=== PATIENT | female | born 1955 | race Caucasian/White ===

== ENCOUNTER 2017-02-15 10:48 | Outpatient (CLI) ==
--- NOTE | 2017-02-15 11:54 | DI ---
EXAM: CHEST FRONTAL AND LATERAL VIEWS HISTORY: Cough. COMPARISON: 01/07/2010 FINDINGS: Heart size and mediastinal contour remain within normal limits. There is diffuse, chroni c appearing interstitial accentuation. Lungs are hyperinflated and there is relative lucency of the lung zones suggesting the possibility of pulmonary emphysema. Subtle density is seen over the right upper lobe which was not appreciated previously. Lungs are otherwise clear. No pleural fluid, pneum othorax or vascular congestion. IMPRESSION: Cannot exclude a component chronic obstructive pulmonary disease, correlate clinically. Subtle densi ty in the right upper lobe may represent minimal pneumonia.
== END 2017-02-15 10:49 | disposition home or self-care (01) ==
LOC: RAD 10:48
PROVIDERS: ATTEND Physician Assistant
DX: R05 Cough (principal)

== ENCOUNTER 2017-09-27 16:29 | Outpatient (CLI) ==
--- NOTE | 2017-09-27 17:04 | CT ---
Exam: CT abdomen pelvis without intravenous contrast. Comparison: None available. Reason for exam: Pelvic pain renal stone protocol. FINDINGS: Ground-glass opacities are seen in both lung bases without pleural effusion. Image interpretation is limited by the lack of intravenous contrast administration. The liver, gallbladder, spleen, adrenal glands, and pancreas appear grossly unremarkable within limit ations of a noncontrasted study. No hydronephrosis, hydroureter, or nephrolithiasis is seen in either kidney. The bladder appears grossly unremarkable. No focal small bowel dilatation or transition point. The appendix is unremarkable. No intra-abdominal free air or pelvic free fluid. Diverticular disease is seen in the rectosigmoid without surrounding inflammatory change. Degenerative disease is seen in the lumbosacral spine with intervertebral body disc space height narr owing and osteophyte formation. No suspicious appearing osteoblastic or osteolytic lesions. Impression: 1. Patchy ground-glass opacities are seen in both lung bases. Imaging findings are most likely infl ammation or early infection. Recommend follow up imaging to document resolution. 2. No acute inflammatory findings are seen within the abdomen or pelvis. 3. The appendix is unremarkable. 4. Diverticulosis without diverticulitis. 5. No hydronephrosis, hydroureter or nephrolithiasis in either kidney
== END 2017-09-27 16:30 | disposition home or self-care (01) ==
LOC: RAD 16:29
PROVIDERS: ATTEND Physician Assistant
DX: R10.2 Pelvic and perineal pain (principal)
CPT/HCPCS: 74176

== ENCOUNTER 2017-11-06 09:37 | Outpatient (CLI) ==
--- NOTE | 2017-11-06 11:24 | DEXA ---
EXAM: Bone densitometry. History: Menopause Findings: Evaluation of the lumbar spine reveals a total bone mineral density of 0.845 grams per centimeter squ ared with T-score of negative 2.8. Evaluation of the left hip reveals a total bone mineral density of 0.871 grams per centimeter squared with T-score of negative 1.1. Evaluation of the right hip reveals a total bone mineral density of 0.853 grams per centimeter square d with T-score of negative 1.2. Impression: 1. Osteoporosis of the lumbar spine. 2. Osteopenia of bilateral hips.
== END 2017-11-06 09:38 | disposition home or self-care (01) ==
LOC: RAD 09:37
PROVIDERS: ATTEND Physician Assistant
DX: N95.1 Menopausal and female climacteric states (principal)

== ENCOUNTER 2017-11-08 16:01 | Outpatient (CLI) ==
--- NOTE | 2017-11-08 17:02 | DI ---
EXAM: Chest two views HISTORY: Cough COMPARISON: 02/15/2017 TECHNIQUE: Two views of the chest were performed FINDINGS: Patchy right basilar atelectasis and/or infiltrate. There is no pleural effusion or pneum othorax. The heart is normal in size. The mediastinal contour is normal, noting atherosclerosis.. There are no acute abnormalities of the bones. IMPRESSION: Patchy right basilar atelectasis and/or pneumonia.
== END 2017-11-08 16:02 | disposition home or self-care (01) ==
LOC: RAD 16:01
PROVIDERS: ATTEND Physician Assistant
DX: R05 Cough (principal)

== ENCOUNTER 2018-07-02 11:57 | Outpatient (CLI) ==
--- NOTE | 2018-07-02 12:44 | DI ---
Exam: Two views of the thoracolumbar spine. Comparison: Chest x-ray performed 01/11/2018. Reason for exam: T12 fracture. FINDINGS: Compression deformity is seen in what is presumed to be the T12 vertebral body. There is approximately 50% loss of vertebral body height. No other fracture or malalignment is seen. Impression: Compression deformity in the T12 vertebral body with approximately 50% loss of vertebral body height.
== END 2018-07-02 11:58 | disposition home or self-care (01) ==
LOC: RAD 11:57
PROVIDERS: ATTEND Specialist
DX: S22.089A Unspecified fracture of T11-T12 vertebra, initial encounter for closed fracture (principal)

== ENCOUNTER 2018-07-16 12:59 | Inpatient (IN) ==
[2018-07-16] MEDS ORDERED: DUONEB NEB STA (14:02)
--- NOTE | 2018-07-16 14:08 | ED.PDOC ---
General ED Provider: Dr. MARIA M POWERS Chief Complaint: Cough Stated Complaint: Shortness of breath and congestion Time Seen by Physician: 13:15 Mode of Arrival: Walk-In Information Source: Patient Exam Limitations: No limitations Primary Care Provider: OSEI PHAM Nursing and Triage Documentation Reviewed and Agree: Yes Does patient meet sepsis criteria?: Yes If yes, has appropriate treatment been initiated?: Yes System Inflammatory Response Syndrome: Pulse >90 BPM Sepsis Protocol: For patient's 13 years and over: Temp is 96.8 and below OR 101 and greater Pulse >90 BPM Resp >20/minute Acutely Altered Mental Status Are patient's symptoms suggestive of a new infection, such as: -Pneumonia -Skin, Soft Tissue -Endocarditis -UTI -Bone, Joint Infection -Implantable Device -Acute Abdominal Infection -Wound Infection -Meningitis -Blood Stream Catheter Infection -Unknown Respiratory Complaint Exam - Shortness of Air Complaint/Exam Onset/Duration: 5 days Symptoms Are: Still present, Worse Timing: Intermittent Initial Severity: Moderate Current Severity: Moderate Character: Reports: Dyspnea at rest, Dyspnea on exertion Aggravating: Reports: Movement, Deep breaths, Recumbent position Alleviating: Reports: Oxygen Associated Signs and Symptoms: Reports: Cough, Wheezing Related History: Reports: Similar episode History of Healthcare-Acquired Pneumonia: No Pulmonary Embolism Risk Factors: Reports: None Pseudomonas Risk Factors: Reports: None Tuberculosis Risk Factors: Reports: None Home Oxygen Use: No Recent Stress Test: No Recent Echo/LV Function: No Stridor Present: No Tracheal Deviation: No Subcutaneous Emphysema: No Accessory Muscle Use: No Retractions: Not Present Diminished Breath Sounds: Yes Prolonged Expiratory Phase: Yes Unable to Speak Full Sentences: No Fatigue: Yes Leg Swelling: No Alicia's Sign Present: No Grunting Respirations: No Kussmaul Respirations: No Differential Diagnoses: COPD Exacerbation, Pneumonia, Bronchitis, Bronchospasm Review of Systems - Review Of Systems Constitutional: Reports: Malaise, Weakness Eyes: Reports: No symptoms Ears, Nose, Mouth, Throat: Reports: No symptoms Respiratory: Reports: Cough, Orthopnea, Short of air, Wheezing Cardiac: Reports: No symptoms GI: Reports: No symptoms : Reports: No symptoms Musculoskeletal: Reports: No symptoms Skin: Reports: No symptoms Neurological: Reports: No symptoms Endocrine: Reports: No symptoms Hematologic/Lymphatic: Reports: No symptoms All Other Systems: Reviewed and Negative Past Medical History - Past Medical History Previously Healthy: Yes Endocrine: Reports: None Cardiovascular: Reports: None, Hypertension Respiratory: Reports: COPD, 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) Hematological: Reports: None Gastrointestinal: Reports: None Genitourinary: Reports: None Neuro/Psych: Reports: None Musculoskeletal: Reports: Back Pain, Other (prev back injury) Cancer: Reports: None Last Menstrual Period: none - Surgical History General Surgical History: Reports: Unknown - Family History Family History: Reports: Unknown - Social History Smoking Status: Current every day smoker, Light tobacco smoker Hx Substance Use: No Alcohol Screening: None Lives: Alone Physical Exam - Physical Exam Appearance: Ill-appearing, Obese Ill-appearing: Moderate Pain Distress: Moderate Eyes: DEJAN, EOMI, Conjunctiva clear ENT: Ears normal, Nose normal, Oropharynx normal Neck: Supple Respiratory: Airway patent, Breath sounds diminished, Rhonchi, Wheezes Cardiovascular: RRR, Pulses normal, No rub, No murmur GI/: Soft, Nontender, No masses, Bowel sounds normal, No Organomegaly Musculoskeletal: Normal strength, ROM intact, No edema, No calf tenderness Skin: Warm Neurological: Sensation intact, Motor intact, Reflexes intact, Cranial nerves intact, Alert, Oriented Psychiatric: Affect appropriate, Mood appropriate Interpretation - Radiology Interpretation Radiology Interpretation By: Radiologist Exam Interpreted: CT Scan (NO PE/ emphysema and nodular densities-poss infectious or inflamatory r/o neoplasm-expl to pt) Re-Evaluation - Re-Evaluation Time of Re-Evaluation: 17:25 Status: Improved Vital Signs Stable: Yes (Attempted to wean off O2 but O2 Sats dropped to 87-88%) Appearance: NAD Lungs: Other (Diminished BS-Wheezing) Skin: Warm and Dry Neuro: Alert and Oriented X3 CV: RRR Physician Notification - Case Discussed Physician Notified: Dr Piedra- To admit patient Time of Notification: 17:40 (Agreed to admit for tx exac copd) Critical Care Note - Critical Care Note Total Time (mins): 60 Course - Course Hematology/Chemistry: 07/16/18 13:25 07/16/18 13:25 Orders, Labs, Meds: Lab Review 07/16/18 07/16/18 07/16/18 13:25 13:25 13:25 WBC 12.23 H RBC 5.33 Hgb 16.1 H Hct 47.9 H MCV 89.9 MCH 30.2 MCHC 33.6 RDW Coeff of Bryan 12.2 Plt Count 347 Immature Gran % (Auto) 0.5 Neut % (Auto) 70.9 Lymph % (Auto) 19.0 Christian % (Auto) 7.3 Eos % (Auto) 1.7 Baso % (Auto) 0.6 Immature Gran # (Auto) 0.1 Neut # (Auto) 8.7 H Lymph # (Auto) 2.3 Christian # (Auto) 0.9 Eos # (Auto) 0.2 Baso # (Auto) 0.1 Puncture Site O2 Saturation ABG pH ABG pCO2 ABG pO2 ABG HCO3 ABG Total CO2 ABG Base Excess Abiel Test FiO2 % Sodium 135.7 Potassium 4.10 Chloride 96.4 L Carbon Dioxide 35.0 H Anion Gap 8.40 BUN 4.2 L Creatinine 0.51 L Estimated GFR (MDRD) 123.00 BUN/Creatinine Ratio 8.23 Glucose 123.9 H Lactic Acid Calcium 8.64 Total Bilirubin 0.40 AST 24.5 ALT 34.1 Alkaline Phosphatase 88.2 Total Protein 7.57 Albumin 3.52 Globulin 4.05 Albumin/Globulin Ratio 0.86 Procalcitonin < 0.05 Influ A Molecular Assay Influ B Molecular Assay 07/16/18 07/16/18 07/16/18 13:25 14:15 14:20 WBC RBC Hgb Hct MCV MCH MCHC RDW Coeff of Bryan Plt Count Immature Gran % (Auto) Neut % (Auto) Lymph % (Auto) Christian % (Auto) Eos % (Auto) Baso % (Auto) Immature Gran # (Auto) Neut # (Auto) Lymph # (Auto) Christian # (Auto) Eos # (Auto) Baso # (Auto) Puncture Site R rad O2 Saturation 91.0 L ABG pH 7.442 ABG pCO2 44.1 ABG pO2 59.0 L* ABG HCO3 30.1 H ABG Total CO2 31 H ABG Base Excess 6 H Abiel Test + FiO2 % 21.0 Sodium Potassium Chloride Carbon Dioxide Anion Gap BUN Creatinine Estimated GFR (MDRD) BUN/Creatinine Ratio Glucose Lactic Acid 1.23 Calcium Total Bilirubin AST ALT Alkaline Phosphatase Total Protein Albumin Globulin Albumin/Globulin Ratio Procalcitonin Influ A Molecular Assay Negative by naat Influ B Molecular Assay Negative by naat Orders Category Date Time Status ABG DRAW REQUEST Stat CARDIO 07/16/18 14:02 Completed EKG-(ED ONLY) Stat CARDIO 07/16/18 14:02 Completed NEBULIZER TREATMENT Stat CARDIO 07/16/18 14:03 Completed NEBULIZER TREATMENT Stat CARDIO 07/16/18 17:59 Ordered NEBULIZER TREATMENT Stat CARDIO 07/16/18 18:00 Ordered OXYGEN Routine CARDIO 07/16/18 14:03 Ordered NPO REMINDER: IMAGING ONCE CARE 07/16/18 14:52 Active ABG Stat LAB 07/16/18 14:20 Completed BLOOD CULTURE Stat LAB 07/16/18 13:28 Received CBC W/ AUTO DIFF Stat LAB 07/16/18 13:25 Completed CMP [COMPREHENSIVE METABOLIC PANEL] Stat LAB 07/16/18 13:25 Completed CPK [CREATINE KINASE] Stat LAB 07/16/18 17:57 Ordered FLU A/B MOLECULAR Stat LAB 07/16/18 13:25 Completed LACTIC ACID Stat LAB 07/16/18 14:15 Completed PROCALCITONIN Stat LAB 07/16/18 13:25 Completed RAPID STREP SCREEN [MOLECULAR GROUP A STREP] Stat LAB 07/16/18 13:25 Completed TROPONIN I Stat LAB 07/16/18 17:57 Ordered Budesonide [Pulmicort 0.5 mg/2 ml] MEDS 07/16/18 17:59 Stat 1 vial NEB ONCE STA Ceftriaxone Sodium [Rocephin] 1 gm MEDS 07/16/18 17:58 Ordered 0.9 % Sodium Chloride [Sodium Chloride] 50 ml IV ONCE Ipratropium/Albuterol Neb [Duoneb] MEDS 07/16/18 14:02 Discontinued 1 vial NEB ONCE STA Levalbuterol HCl [Xopenex 1.25 mg] MEDS 07/16/18 17:59 Stat 1 vial NEB ONCE STA Methylprednisolone Sod Succ/Pf [Solu-Medrol 125 mg] MEDS 07/16/18 17:28 Discontinued 125 mg IVP ONCE STA CT CHEST PE PROTOCOL Stat RADS 07/16/18 14:51 Completed Medications Generic Name Dose Route Start Last Admin Trade Name Freq PRN Reason Stop Dose Admin Ceftriaxone Sodium 1 gm/ 50 mls @ 75 mls/hr 07/16/18 17:58 Sodium Chloride IV 07/16/18 18:37 ONCE STA Discontinued Medications Generic Name Dose Route Start Last Admin Trade Name Freq PRN Reason Stop Dose Admin Albuterol/Ipratropium 1 vial 07/16/18 14:02 07/16/18 14:20 Duoneb NEB 07/16/18 14:03 1 vial ONCE STA Administration Budesonide 1 vial 07/16/18 17:59 Pulmicort 0.5 Mg/2 Ml NEB 07/16/18 18:00 ONCE STA Levalbuterol HCl 1 vial 07/16/18 17:59 Xopenex 1.25 Mg NEB 07/16/18 18:00 ONCE STA Methylprednisolone Sodium Succinate 125 mg 07/16/18 17:28 07/16/18 17:35 Solu-Medrol 125 Mg IVP 07/16/18 17:29 125 mg ONCE STA Administration Vital Signs: Temp Pulse Resp BP Pulse Ox 07/16/18 12:59 99.9 F H 108 H 22 102/69 89 L Departure - Departure Time of Disposition: 17:00 Disposition: HOME SELF-CARE Discharge Problem: COPD exacerbation, Pulmonary nodules Instructions: COPD (Chronic Obstructive Pulmonary Disease) (ED), Chronic Bronchitis (ED), Chronic Lung Disease and Infection Prevention (ED) Condition: Fair Pt referred to PMD for follow-up: Yes (PCP/Pulmonolgy) IPMP verified?: No Additional Instructions: Use Nebs every 4 hrs daily Take Prednisone as directed Allergies/Adverse Reactions: Allergies No Known Allergies Allergy (Unverified 07/16/18 13:06) Home Medications: Ambulatory Orders Atorvastatin Calcium [Lipitor] 20 mg PO BEDTIME 07/16/18 Losartan Potassium [Cozaar] 50 mg PO DAILY 07/16/18 Ticagrelor [Brilinta] 90 mg PO BID 07/16/18
--- NOTE | 2018-07-16 16:10 | CT ---
EXAM: CTA CHEST (PE PROTOCOL) HISTORY: Dyspnea, decreased oxygen saturation TECHNIQUE: CTA chest with intravenous contrast. Multiplanar images were provided with 3-D reconstru ctions. 100 mL Omnipaque. COMPARISON: None FINDINGS: No pulmonary arterial filling defect. Relatively mild atherosclerotic disease. Heart size is normal . There is no pericardial effusion. A few mediastinal and hilar lymph nodes are seen, some which ar e prominent measuring up to about 9 mm short axis. Lungs reveal evidence of at least mild if not moderate pulmonary emphysema. Scattered areas of scarr ing. There are nodular infiltrates or nodules, mostly seen in the peripheral lungs and much greater on the left than on the right. These nodules measure up to about 11 mm. There is intermixed interst itial thickening between these entities greater in the posterior lower lobes than elsewhere. Central bronchiectasis is noted bilaterally. There is no central vascular congestion, interstitial edema, p leural fluid or pneumothorax. The bones reveal early degenerative endplate changes of the thoracic spine. IMPRESSION: 1. No pulmonary arterial thromboembolism. 2. Pulmonary emphysema. 3. Nodular infiltrates versus nodules with intermixed interstitial thickening. Consider an inflamma tory or infectious process. Neoplastic nodules are not excluded and follow-up CT is recommended afte r management and symptom improvement. 4. Atherosclerosis. 5. Prominent mediastinal lymph nodes.
[2018-07-16] MEDS ORDERED: SOLU-MEDROL 125 MG IVP STA (17:28)
[2018-07-16] MEDS ORDERED: ROCEPHIN 1 GM in SODIUM CHLORIDE 50 ML IV STA (17:58)
[2018-07-16] MEDS ORDERED: PULMICORT 0.5 MG/2 ML NEB STA (17:59)
[2018-07-16] MEDS ORDERED: XOPENEX 1.25 MG NEB STA (17:59)
[2018-07-16] MEDS ORDERED: ZITHROMAX PO STA (18:09)
[2018-07-16] MEDS ORDERED: ROCEPHIN ONE (18:39)
[2018-07-16] MEDS: LIPITOR PO SCH (20:23)
[2018-07-16] MEDS: LOVENOX SUBCUT SCH (20:25)
[2018-07-16] MEDS ORDERED: TESSALON PERLES PO PRN (20:55)
[2018-07-16] MEDS ORDERED: BRILINTA PO SCH (21:00)
[2018-07-16] MEDS: PHENERGAN WITH CODEINE 6.25/10 MG/5 ML PO SCH (21:21)
[2018-07-16 22:06] VITALS: BMI 33.6
[2018-07-16] MEDS: XOPENEX 1.25 MG NEB SCH (23:05)
[2018-07-16] MEDS ORDERED: XOPENEX 1.25 MG NEB ONE (23:05)
[2018-07-17] MEDS: SOLU-CORTEF 250 MG IVP SCH ×4 (00:08→20:52)
[2018-07-17] MEDS: PROAIR HFA IH SCH ×4 (00:08→17:10)
[2018-07-17] MEDS: XOPENEX 1.25 MG NEB SCH ×4 (04:42→21:50)
[2018-07-17] MEDS: ROCEPHIN 1 GM in SODIUM CHLORIDE 50 ML IV SCH (08:56)
[2018-07-17] MEDS: LOVENOX SUBCUT SCH (08:56)
[2018-07-17] MEDS: PHENERGAN WITH CODEINE 6.25/10 MG/5 ML PO SCH ×4 (08:56→20:52)
[2018-07-17] MEDS: COZAAR PO SCH (08:58)
[2018-07-17] MEDS ORDERED: NON-FORMULARY MEDICATION (Losartan Potassium 50 MG) PO SCH (09:00)
--- NOTE | 2018-07-17 09:18 | PCM.PROG ---
Attending Provider: ATTENDING PROVIDER: [facility] This patient is seen with Ariana Joe, Nurse Practitioner. DATE OF SERVICE: 07/17/18 SUBJECTIVE: This 62 year old WHITE/ F was hospitalized 07/16/18. The patient is resting comfortably. Breathing has significantly improved. The patient was able to get some rest through the night. She is a heavy smoker. REVIEW OF SYSTEMS: CONSTITUTIONAL: No night sweats. No fatigue, malaise, lethargy. No fever or chills. HEENT: Eyes: No visual changes. No eye pain. No eye discharge. ENT: No runny nose. No epistaxis. No sinus pain. No odynophagia. No congestion. RESPIRATORY: Cough and wheezing, no congestion. No hemoptysis. No shortness of breath. CARDIOVASCULAR: No angina symptoms. No CHF symptoms. No atypical chest pain for CAD. No palpitations. No orthopnea.. GASTROINTESTINAL: No abdominal pain. No nausea or vomiting. No diarrhea or constipation. No hematemesis. No hematochezia. GENITOURINARY: No urgency. No frequency. No dysuria. No hematuria. No obstructive symptoms. No discharge. No pain. No significant abnormal bleeding. MUSCULOSKELETAL: No musculoskeletal pain; no joint swelling. NEUROLOGICAL: Awake, alert, oriented to time, place and person. No headache. No neck pain. No syncope. No seizures. No dizziness. PSYCHIATRIC: Not anxious. No depression. No suicidal thoughts. No homicidal thoughts. SKIN: No rash. No lesions. No wounds. ENDOCRINE: No unexplained weight loss. No weight gain. HEMATOLOGIC/LYMPHATIC: No anemia. No purpura. No petechiae. No prolonged or excessive bleeding. No palpable lymph nodes. PHYSICAL EXAMINATION: GENERAL: The patient is awake, alert and oriented, lying in bed in no distress. VITAL SIGNS: Temperature 98.1 F, Pulse 94, Respiratory Rate 17, BP 117/81, Pulse Ox 92% HEENT: Head normocephalic, atraumatic. Eyes: Extraocular muscles are intact. Pupils are equal, round and reactive to light and accommodation. Ears: No lesions. Nose appeared normal. Throat: No exudate or erythema. NECK: Supple. No JVD, no carotid bruit. No lymphadenopathy or thyromegaly. LUNGS: Decreased breath sounds with faint expiratory wheezing. Clear to auscultation. Percussion note normal. Chest symmetrical. HEART: S1, S2, no S3. No murmurs. No cyanosis or clubbing. No ascites. Pulses: Dorsalis pedis and posterior tibial pulses +1 to +2 both sides. ABDOMEN: Soft. Non-tender. Bowel sounds active. No CVA tenderness. No mass felt. EXTREMITIES: No edema. Full range of motion of all extremities, equal. NEUROLOGIC: No focal deficit. Cranial nerves II through XII are grossly intact. No headache, no double vision or headache. SKIN: Not dry. Intact. Turgor-normal. LYMPHATIC: No palpable lymph nodes/no lymphedema. MUSCULOSKELETAL: Normal joints with no swelling. Muscle tone is normal. LAB REVIEW: 07/17/18 05:07 07/17/18 05:07 07/17/18 05:07: Sodium 131.0 L, Potassium 4.30, Chloride 95.9 L, Carbon Dioxide 25.8 D, Anion Gap 13.60, BUN 5.5 L, Creatinine 0.46 L, Estimated GFR (MDRD) 139.00, BUN/Creatinine Ratio 11.95, Glucose 303.3 H D, Calcium 8.44, Total Bilirubin 0.21, AST 19.0, ALT 42.6 H, Alkaline Phosphatase 73.8, Total Protein 6.69, Albumin 3.29 L, Globulin 3.40, Albumin/Globulin Ratio 0.96 07/17/18 05:07: WBC 12.05 H, RBC 4.74, Hgb 14.2, Hct 43.1, MCV 90.9, MCH 30.0, MCHC 32.9, RDW Coeff of Bryan 12.1, Plt Count 308, Immature Gran % (Auto) 1.1, Neut % (Auto) 84.5, Lymph % (Auto) 12.0, Fleming % (Auto) 2.2, Eos % (Auto) 0.0, Baso % (Auto) 0.2, Immature Gran # (Auto) 0.1, Neut # (Auto) 10.2 H, Lymph # ( Auto) 1.4, Fleming # (Auto) 0.3 L, Eos # (Auto) 0.0, Baso # (Auto) 0.0 07/17/18 05:00: Puncture Site Rbrach, O2 Saturation 88.0 L, ABG pH 7.313 L, ABG pCO2 51.9 H, ABG pO2 59.0 L*, ABG HCO3 26.3 H, ABG Total CO2 28, ABG Base Excess 0, Abiel Test +, FiO2 % 21.0 07/17/18 00:20: Troponin I < 0.012 07/16/18 14:20: Puncture Site R rad, O2 Saturation 91.0 L, ABG pH 7.442, ABG pCO2 44.1, ABG pO2 59.0 L*, ABG HCO3 30.1 H, ABG Total CO2 31 H, ABG Base Excess 6 H, Abiel Test +, FiO2 % 21.0 07/16/18 14:15: Lactic Acid 1.23 07/16/18 13:25: Total Creatine Kinase 26.4 L, Troponin I < 0.012 07/16/18 13:25: Influ A Molecular Assay Negative by naat, Influ B Molecular Assay Negative by naat 07/16/18 13:25: Procalcitonin < 0.05 07/16/18 13:25: Sodium 135.7, Potassium 4.10, Chloride 96.4 L, Carbon Dioxide 35.0 H, Anion Gap 8.40, BUN 4.2 L, Creatinine 0.51 L, Estimated GFR (MDRD) 123.00, BUN/Creatinine Ratio 8.23, Glucose 123.9 H, Calcium 8.64, Total Bilirubin 0.40, AST 24.5, ALT 34.1, Alkaline Phosphatase 88.2, Total Protein 7.57, Albumin 3.52, Globulin 4.05, Albumin/Globulin Ratio 0.86 07/16/18 13:25: WBC 12.23 H, RBC 5.33, Hgb 16.1 H, Hct 47.9 H, MCV 89.9, MCH 30.2, MCHC 33.6, RDW Coeff of Bryan 12.2, Plt Count 347, Immature Gran % (Auto) 0.5, Neut % (Auto) 70.9, Lymph % (Auto) 19.0, Fleming % (Auto) 7.3, Eos % (Auto) 1.7, Baso % (Auto) 0.6, Immature Gran # (Auto) 0.1, Neut # (Auto) 8.7 H, Lymph # (Auto) 2.3, Fleming # (Auto) 0.9, Eos # (Auto) 0.2, Baso # (Auto) 0.1 ASSESSMENT: Please see below. 1. Acute COPD exacerbation 2. Shortness of breath, requiring oxygen 3. Hypertension PLAN: 1. Decreased Solu-Cortef 125mg Q 8 hours 2. Start Pulmicort NEBS treatment twice a day 3. A1c Plan and coordination of the patient's care discussed in the presence of Information Systems Security Specialist and nurse. SCRIBED BY: Brandon DEL VALLE scribed while in presence of service performed by Dr. Esquivel/Ariana Joe APRN on 07/17/18 ([id number])
[2018-07-17] MEDS ORDERED: NICODERM 21 MG TD SCH (11:00)
[2018-07-17] MEDS: NICODERM 21 MG TD SCH (11:41)
[2018-07-17] MEDS: PULMICORT 0.5 MG/2 ML NEB SCH (17:24)
[2018-07-17] MEDS ORDERED: ZITHROMAX PO SCH (18:14)
[2018-07-17] MEDS: LIPITOR PO SCH (20:52)
[2018-07-18] MEDS: PROAIR HFA IH SCH ×5 (00:05→17:03)
[2018-07-18] MEDS: PULMICORT 0.5 MG/2 ML NEB SCH ×2 (04:54→17:04)
[2018-07-18] MEDS: XOPENEX 1.25 MG NEB SCH ×3 (04:54→17:05)
[2018-07-18] MEDS: SOLU-CORTEF 250 MG IVP SCH ×3 (05:25→21:29)
--- NOTE | 2018-07-18 08:12 | HP ---
DATE OF SERVICE: 07/16/18 HISTORY OF PRESENT ILLNESS: This 62-year-old white female who presented to the emergency room with cough and shortness of breath. She is a mcc smoker. Her primary care provider is Blanca Rosales at the [facility]. PAST MEDICAL HISTORY: COPD Hypertension Obesity Chronic back pain Dyslipidemia Hyperglycemia PAST SURGICAL HISTORY: None known. REVIEW OF SYSTEMS: CONSTITUTIONAL: No night sweats. No fatigue, malaise, lethargy. Positive for fever. HEENT: Eyes: No visual changes. No eye pain. No eye discharge. ENT: No runny nose. No epistaxis. No sinus pain. No sore throat. No odynophagia. No ear pain. No congestion. RESPIRATORY: Positive for cough, wheeze. No hemoptysis. Positive for shortness of breath. CARDIOVASCULAR: No angina symptoms. No CHF symptoms. No atypical chest pain for CAD. No palpitations. No PND. No orthopnea. GASTROINTESTINAL: No abdominal pain. No nausea or vomiting. No diarrhea or constipation. No hematemesis. No hematochezia. GENITOURINARY: No urgency. No frequency. No dysuria. No hematuria. No obstructive symptoms. No discharge. No pain. No significant abnormal bleeding. MUSCULOSKELETAL: No musculoskeletal pain. No joint swelling. No arthritis. NEUROLOGICAL: No headache. No neck pain. No syncope. No seizures. No dizziness. PSYCHIATRIC: Not anxious. No depression. No suicidal thoughts. No homicidal thoughts. SKIN: No rash. No lesions. No wounds. ENDOCRINE: No unexplained weight loss. No weight gain. HEMATOLOGIC/LYMPHATIC: No anemia. No purpura. No petechiae. No prolonged or excessive bleeding. No palpable lymph nodes. PERSONAL/FAMILY/SOCIAL HISTORY: She is a current every day smoker. No alcohol or ilicit drug use. MEDICATIONS: (HOME) Lipitor 20 mg p.o. bedtime Cozaar 50 mg p.o. daily Proair Hfa two puff IH p.r.n. ALLERGIES: NKDA PHYSICAL EXAMINATION: VITAL SIGNS: Temperature 99.9, heart rate 108, respirations 22, BP 102/69, pulse ox 89% on room air. HEENT: Head normocephalic, atraumatic. Eyes: Extraocular muscles are intact. Pupils are equal, round and reactive to light and accommodation. Ears: No lesions. Nose appeared normal. Throat: No exudate or erythema. NECK: Supple. No JVD, no carotid bruit. No lymphadenopathy or thyromegaly. LUNGS: Diminished breath sounds with bilateral inspiratory and expiratory wheezing as well as rhonchi. Percussion note normal. Chest symmetrical. HEART: S1, S2, no S3. No murmurs. No cyanosis or clubbing. No ascites. Pulses: Dorsalis pedis and posterior tibial pulses +1 to +2 bilaterally. ABDOMEN: Soft. Nontender. Bowel sounds active. No CVA tenderness. No mass felt. EXTREMITIES: No leg edema. Full range of motion of all extremities, equal. NEUROLOGIC: The patient is alert and oriented times three. No focal deficit. Cranial nerves II through XII are grossly intact. No headache, no double vision or headache. SKIN: Warm and dry. Intact. Turgor - normal. LYMPHATIC: No palpable lymph nodes/no lymphedema. MUSCULOSKELETAL: Normal joints with no swelling. Muscle tone is normal. White count 12.23, hemoglobin 16.1, hematocrit 47.9. Sodium 135, potassium 4.1, BUN 4.2, creatinine 0.5, glucose 123. CT of the chest shows no pneumonia, atelectasis, multiple nodules that could be associated with infection, inflammatory process. Repeat CT scan recommended in order to rule out malignant process. ABGs on room air 02 sat 91, pH 7.442, pc02 44, p02 59, bicarb 30.1, total c02 31, base excess 6. ASSESSMENT: 1. SHORTNESS OF BREATH 2. SMOKER 3. MULTIPLE PULMONARY NODULES 4. OBESITY 5. HYPERTENSION 6. HYPERGLYCEMIA PLAN: 1. We will admit. 2. Routine telemetry orders. 3. CBC, CMP daily. 4. Start on Xopenex neb treatments t.i.d. NEVILLE. 5. Rocephin 1 gm IV daily. 6. Solu-Cortef 125 mg IV q.8hr. 7. Continue home medications. 8. Zithromax 500 mg p.o. daily times three days. 9. Phenergan with Codeine 1 to 2 teaspoons q.6hr p.r.n. for cough. 10. NS at 75 cc/hr. 11. A1C for hyperglycemia. 12. Oxygen at 1 to 2L as needed to keep 02 sat greater than 90%. 13. Low sodium diet. 14. Sputum for culture and sensitivity. 15. Will follow closely. TIME SPENT: More than 70 minutes. MTDD
[2018-07-18] MEDS: COZAAR PO SCH (08:14)
[2018-07-18] MEDS: ZITHROMAX PO SCH (08:14)
[2018-07-18] MEDS: PHENERGAN WITH CODEINE 6.25/10 MG/5 ML PO SCH ×4 (08:15→21:29)
[2018-07-18] MEDS: NICODERM 21 MG TD SCH (08:15)
[2018-07-18] MEDS: LOVENOX SUBCUT SCH (08:16)
--- NOTE | 2018-07-18 08:31 | PN ---
DATE OF SERVICE: 07/16/18 SUBJECTIVE: The patient was seen and examined in her room (Room 116). The patient was hospitalized through the emergency room with cough, congestion and shortness of breath. The patient was in acute respiratory failure with hypoxemia. The patient denied any PND, orthopnea or chest pain. She was short of breath on exertion. The patient is a heavy smoker, has COPD. REVIEW OF SYSTEMS: CONSTITUTIONAL: No night sweats. No fatigue, malaise, lethargy. No fever or chills. HEENT: Eyes: No visual changes. No eye pain. No eye discharge. ENT: No runny nose. No epistaxis. No sinus pain. No sore throat. No odynophagia. No congestion. RESPIRATORY: No cough, no congestion. No hemoptysis. Shortness of breath on exertion. CARDIOVASCULAR: No angina symptoms. No CHF symptoms. No atypical chest pain for CAD. No palpitations. No PND. No orthopnea. GASTROINTESTINAL: No abdominal pain. No nausea or vomiting. No diarrhea or constipation. No hematemesis. No hematochezia. GENITOURINARY: No urgency. No frequency. No dysuria. No hematuria. No obstructive symptoms. No discharge. No pain. No significant abnormal bleeding. MUSCULOSKELETAL: No musculoskeletal pain; no joint swelling. NEUROLOGICAL: No headache. No neck pain. No syncope. No seizures. No dizziness. PSYCHIATRIC: Not anxious. No depression. No suicidal thoughts. No homicidal thoughts. SKIN: No rash. No lesions. No wounds. ENDOCRINE: No unexplained weight loss. No weight gain. HEMATOLOGIC/LYMPHATIC: No anemia. No purpura. No petechiae. No prolonged or excessive bleeding. No palpable lymph nodes. PHYSICAL EXAMINATION: GENERAL: The patient was oriented to time, place and person. VITAL SIGNS: Temperature 98, pulse 90, respiratory rate 15, BP 130/70. HEENT: Head normocephalic, atraumatic. Eyes: Extraocular muscles are intact. Pupils are equal, round and reactive to light and accommodation. Ears: No lesions. Nose appeared normal. Throat: No exudate or erythema. NECK: Supple. No JVD, no carotid bruit. No lymphadenopathy or thyromegaly. LUNGS: Decreased breath sounds with bilateral wheeze. Increased AP diameter of the chest. Percussion note normal. Chest symmetrical. HEART: S1, S2, no S3. No murmurs. No cyanosis or clubbing. No ascites. Pulses: Dorsalis pedis and posterior tibial pulses +1 bilaterally. ABDOMEN: Soft. Nontender. Bowel sounds active. No CVA tenderness. No mass felt. EXTREMITIES: No pedal edema. Full range of motion of all extremities, equal. NEUROLOGIC: No focal deficit. Cranial nerves II through XII are grossly intact. No headache, no double vision or headache. SKIN: Not dry. Intact. Turgor - normal. LYMPHATIC: No palpable lymph nodes/no lymphedema. MUSCULOSKELETAL: Normal joints with no swelling. Muscle tone is normal. PLAN: Counseling for smoking; advised to quit smoking. The patient was already feeling better after nebs treatment, steroids and antibiotics given in the emergency room. There was mention about the patient being on Brilinta which was a mistake. The patient was not started on inhaler. Plan was to continue IV antibiotics. The patient was continued on steroids. Nebs treatments were added. Xopenex q.i.d. p.r.n. Continue Zithromax and Rocephin. The patient says she is short of breath on exertion even when she doesn't have bronchitis. She has history of heart disease. Several risk factors for coronary artery disease like hypertension, dyslipidemia, diabetes mellitus. The patient will need echocardiogram to evaluate her LV function. She was advised to continue her Atorvastatin and Rocephin even after discharge. Risk factors for coronary artery disease discussed with her. Condition at the time I saw her was stable. TIME SPENT: More than 30 minutes. Plan and coordination of the patient's care discussed in the presence of nurse. ARY
--- NOTE | 2018-07-18 09:07 | PCM.PROG ---
Attending Provider: ATTENDING PROVIDER: [facility] This patient is seen with Ariana Joe, Nurse Practitioner. DATE OF SERVICE: 07/18/18 SUBJECTIVE: This 62 year old WHITE/ F was hospitalized 07/16/18. The patient is resting comfortably. Shortness of breath has improved. She no longer has any wheezing today. Anticipate discharge home tomorrow. REVIEW OF SYSTEMS: CONSTITUTIONAL: No night sweats. No fatigue, malaise, lethargy. No fever or chills. HEENT: Eyes: No visual changes. No eye pain. No eye discharge. ENT: No runny nose. No epistaxis. No sinus pain. No odynophagia. No congestion. RESPIRATORY:Cough, no congestion. No hemoptysis. No shortness of breath. CARDIOVASCULAR: No angina symptoms. No CHF symptoms. No atypical chest pain for CAD. No palpitations. No orthopnea.. GASTROINTESTINAL: No abdominal pain. No nausea or vomiting. No diarrhea or constipation. No hematemesis. No hematochezia. GENITOURINARY: No urgency. No frequency. No dysuria. No hematuria. No obstructive symptoms. No discharge. No pain. No significant abnormal bleeding. MUSCULOSKELETAL: No musculoskeletal pain; no joint swelling. NEUROLOGICAL: Awake, alert, oriented to time, place and person. No headache. No neck pain. No syncope. No seizures. No dizziness. PSYCHIATRIC: Not anxious. No depression. No suicidal thoughts. No homicidal thoughts. SKIN: No rash. No lesions. No wounds. ENDOCRINE: No unexplained weight loss. No weight gain. HEMATOLOGIC/LYMPHATIC: No anemia. No purpura. No petechiae. No prolonged or excessive bleeding. No palpable lymph nodes. PHYSICAL EXAMINATION: GENERAL: The patient is awake, alert and oriented, lying in bed in no distress. VITAL SIGNS: Temperature 98.4 F, Pulse 78, Respiratory Rate 18, BP 111/67, Pulse Ox 96% HEENT: Head normocephalic, atraumatic. Eyes: Extraocular muscles are intact. Pupils are equal, round and reactive to light and accommodation. Ears: No lesions. Nose appeared normal. Throat: No exudate or erythema. NECK: Supple. No JVD, no carotid bruit. No lymphadenopathy or thyromegaly. LUNGS: Diminished breath sounds. No wheezing. Clear to auscultation. Percussion note normal. Chest symmetrical. HEART: S1, S2, no S3. No murmurs. No cyanosis or clubbing. No ascites. Pulses: Dorsalis pedis and posterior tibial pulses +1 to +2 both sides. ABDOMEN: Soft. Non-tender. Bowel sounds active. No CVA tenderness. No mass felt. EXTREMITIES: No edema. Full range of motion of all extremities, equal. NEUROLOGIC: No focal deficit. Cranial nerves II through XII are grossly intact. No headache, no double vision or headache. SKIN: Not dry. Intact. Turgor-normal. LYMPHATIC: No palpable lymph nodes/no lymphedema. MUSCULOSKELETAL: Normal joints with no swelling. Muscle tone is normal. LAB REVIEW: 07/18/18 05:00 07/18/18 05:00 07/18/18 05:00: Sodium 136.9, Potassium 4.90, Chloride 99.4, Carbon Dioxide 31.3 H, Anion Gap 11.10, BUN 9.2, Creatinine 0.49 L, Estimated GFR (MDRD) 129.00 , BUN/Creatinine Ratio 18.77, Glucose 130.3 H D, Calcium 8.89, Total Bilirubin 0.23, AST 21.0, ALT 30.5, Alkaline Phosphatase 74.3, Total Protein 7.20, Albumin 3.54, Globulin 3.66, Albumin/Globulin Ratio 0.96 07/18/18 05:00: WBC 15.30 H, RBC 5.09, Hgb 15.0, Hct 45.9, MCV 90.2, MCH 29.5, MCHC 32.7, RDW Coeff of Bryan 12.1, Plt Count 365, Immature Gran % (Auto) 1.2, Neut % (Auto) 82.8, Lymph % (Auto) 12.3, [place] % (Auto) 3.5, Eos % (Auto) 0.0, Baso % (Auto) 0.2, Immature Gran # (Auto) 0.2, Neut # (Auto) 12.7 H, Lymph # ( Auto) 1.9, [place] # (Auto) 0.5, Eos # (Auto) 0.0, Baso # (Auto) 0.0 07/17/18 08:17: Troponin I < 0.012 07/17/18 05:07: Hemoglobin A1c 6.22 H ASSESSMENT: Please see below. 1. Acute COPD exacerbation 2. Shortness of breath, improved 3. Hypertension PLAN: 1. Discontinue telemetry 2. 2D Echo 3. Solu-Cortef 125mg Q 12 4. 3 step O2 tomorrow 5. Tomorrow more CT chest with contrast for pulmonary nodules. Plan and coordination of the patient's care discussed in the presence of Non Linear Editor and nurse. SCRIBED BY: JOSE MCCOY Portfolio Analyst scribed while in presence of service performed by Dr. Esquivel/Ariana Joe APRN on 07/18/18 ([id number])
[2018-07-18] MEDS: ROCEPHIN 1 GM in SODIUM CHLORIDE 50 ML IV SCH (09:21)
[2018-07-18] MEDS: LIPITOR PO SCH (21:28)
[2018-07-18] MEDS ORDERED: PROAIR HFA IH PRN (23:54)
[2018-07-19] MEDS: XOPENEX 1.25 MG NEB SCH ×3 (00:12→11:05)
[2018-07-19] MEDS: PULMICORT 0.5 MG/2 ML NEB SCH (04:50)
[2018-07-19] MEDS: NICODERM 21 MG TD SCH (10:19)
[2018-07-19] MEDS: ROCEPHIN 1 GM in SODIUM CHLORIDE 50 ML IV SCH (10:19)
[2018-07-19] MEDS: PHENERGAN WITH CODEINE 6.25/10 MG/5 ML PO SCH ×2 (10:19→13:58)
[2018-07-19] MEDS: ZITHROMAX PO SCH (10:19)
[2018-07-19] MEDS: COZAAR PO SCH (10:19)
[2018-07-19] MEDS: LOVENOX SUBCUT SCH (10:20)
[2018-07-19] MEDS: SOLU-CORTEF 250 MG IVP SCH (10:20)
--- NOTE | 2018-07-19 10:39 | CT ---
EXAM: CT of the chest with contrast History: Follow-up pneumonia Comparison: Chest CT 07/16/2018 Technique: Multiplanar CT images through the thorax were obtained following administration of IV con trast Findings: Heart is mildly enlarged. No pericardial effusion. Great vessels are unremarkable. No a xillary lymphadenopathy. No pathologically enlarged mediastinal or hilar lymph nodes. Emphysema aga in noted. No pleural fluid and no pneumothorax. The peripheral nodular infiltrates within the left lung but not significantly changed. There is increasing consolidation within the lingula. Within the visualized upper abdomen, no acute findings. No acute osseous abnormalities. Chronic-ruchi earing compression deformity involving superior endplate of L1. Chronic compression deformity involv ing superior endplate of T3. Osteopenia. Impression: 1. No significant interval change in the peripheral nodular infiltrates within the left lung. Etiol ogy is uncertain and biopsy will probably be needed. 2. Increasing consolidation within the lingula suspicious for pneumonia. 3. Emphysema
--- NOTE | 2018-07-19 12:29 | PCM.PROG ---
Attending Provider: ATTENDING PROVIDER: [facility] This patient is seen with Ariana Joe, Nurse Practitioner. DATE OF SERVICE: 07/19/18 SUBJECTIVE: This 62 year old WHITE/ F was hospitalized 07/16/18. The patient is resting comfortably. Shortness of breath has significantly improved. She is eating well. She has been up and about. The patient is stable for discharge today. She is scheduled for CT and Echo this morning. REVIEW OF SYSTEMS: CONSTITUTIONAL: No night sweats. No fatigue, malaise, lethargy. No fever or chills. HEENT: Eyes: No visual changes. No eye pain. No eye discharge. ENT: No runny nose. No epistaxis. No sinus pain. No odynophagia. No congestion. RESPIRATORY: Cough, no congestion. No hemoptysis. No shortness of breath. CARDIOVASCULAR: No angina symptoms. No CHF symptoms. No atypical chest pain for CAD. No palpitations. No orthopnea.. GASTROINTESTINAL: No abdominal pain. No nausea or vomiting. No diarrhea or constipation. No hematemesis. No hematochezia. GENITOURINARY: No urgency. No frequency. No dysuria. No hematuria. No obstructive symptoms. No discharge. No pain. No significant abnormal bleeding. MUSCULOSKELETAL: No musculoskeletal pain; no joint swelling. NEUROLOGICAL: Awake, alert, oriented to time, place and person. No headache. No neck pain. No syncope. No seizures. No dizziness. PSYCHIATRIC: Not anxious. No depression. No suicidal thoughts. No homicidal thoughts. SKIN: No rash. No lesions. No wounds. ENDOCRINE: No unexplained weight loss. No weight gain. HEMATOLOGIC/LYMPHATIC: No anemia. No purpura. No petechiae. No prolonged or excessive bleeding. No palpable lymph nodes. PHYSICAL EXAMINATION: GENERAL: The patient is awake, alert and oriented, lying/sitting in bed in no distress. VITAL SIGNS: Temperature 98.0 F, Pulse 79, Respiratory Rate 18, BP 136/82, Pulse Ox 94% HEENT: Head normocephalic, atraumatic. Eyes: Extraocular muscles are intact. Pupils are equal, round and reactive to light and accommodation. Ears: No lesions. Nose appeared normal. Throat: No exudate or erythema. NECK: Supple. No JVD, no carotid bruit. No lymphadenopathy or thyromegaly. LUNGS: Diminished breath sounds bilaterally. No wheezing. Clear to auscultation. Percussion note normal. Chest symmetrical. HEART: S1, S2, no S3. No murmurs. No cyanosis or clubbing. No ascites. Pulses: Dorsalis pedis and posterior tibial pulses +1 to +2 both sides. ABDOMEN: Soft. Non-tender. Bowel sounds active. No CVA tenderness. No mass felt. EXTREMITIES: No edema. Full range of motion of all extremities, equal. NEUROLOGIC: No focal deficit. Cranial nerves II through XII are grossly intact. No headache, no double vision or headache. SKIN: Not dry. Intact. Turgor-normal. LYMPHATIC: No palpable lymph nodes/no lymphedema. MUSCULOSKELETAL: Normal joints with no swelling. Muscle tone is normal. LAB REVIEW: 07/19/18 05:25 07/19/18 05:25 07/19/18 05:25: Sodium 139.0, Potassium 4.52, Chloride 102.6, Carbon Dioxide 31.2 H, Anion Gap 9.72, BUN 12.0, Creatinine 0.50 L, Estimated GFR (MDRD) 126.00 , BUN/Creatinine Ratio 24.00, Glucose 128.7 H, Calcium 8.51, Total Bilirubin 0.16 L, AST 19.0, ALT 31.2, Alkaline Phosphatase 65.6, Total Protein 6.50, Albumin 3.18 L, Globulin 3.32, Albumin/Globulin Ratio 0.95 07/19/18 05:25: WBC 12.13 H, RBC 4.72, Hgb 14.3, Hct 42.8, MCV 90.7, MCH 30.3, MCHC 33.4, RDW Coeff of Bryan 12.5, Plt Count 344, Immature Gran % (Auto) 3.5, Neut % (Auto) 71.5, Lymph % (Auto) 20.1, [place] % (Auto) 4.4, Eos % (Auto) 0.1, Baso % (Auto) 0.4, Immature Gran # (Auto) 0.4, Neut # (Auto) 8.7 H, Lymph # ( Auto) 2.4, [place] # (Auto) 0.5, Eos # (Auto) 0.0, Baso # (Auto) 0.1 ASSESSMENT: Please see below. 1. Acute COPD exacerbation 2. Multiple pulmonary nodules per CT 3. COPD 4. Hypertension 5. Obesity 6. Smoker. PLAN: 1. Discharge Home. 2. Omnicef 200mg twice a day for 7 days 3. Prednisone 20mg twice a day for two days then daily for 3 days 4. Will given Prescription for nebulizer albuterol and Pulmicort. 5. Followup with Blanca Rosales in one week at [facility]. 6. The patient is aware of a three step oxygen test to be preformed today for the need of continuous oxygen. The patient is agreeable to testing and oxygen if needed. Plan and coordination of the patient's care discussed in the presence of School Counselor and nurse. SCRIBED BY: Mikel DEL VALLEist scribed while in presence of service performed by Dr. Piedra/Ariana Joe APRN on 07/19/18 ([id number])
--- NOTE | 2018-07-19 13:40 | PN ---
DATE OF SERVICE: 07/18/18 SUBJECTIVE: Stephany Parkinson was seen and examined with the nurse practitioner. The patient's condition has slowly improved. She is breathing a lot better. PHYSICAL EXAMINATION: HEENT: Head normocephalic, atraumatic. Eyes: Extraocular muscles are intact. Pupils are equal, round and reactive to light and accommodation. Ears: No lesions. Nose appeared normal. Throat: No exudate or erythema. NECK: Supple. No JVD, no carotid bruit. No lymphadenopathy or thyromegaly. LUNGS: Clear to auscultation. Percussion note normal. Chest symmetrical. HEART: S1, S2, no S3. No murmurs. No cyanosis or clubbing. No ascites. Pulses: Dorsalis pedis and posterior tibial pulses +1 to +2 bilaterally. ABDOMEN: Soft. Nontender. Bowel sounds active. No CVA tenderness. No mass felt. EXTREMITIES: No edema. Full range of motion of all extremities, equal. NEUROLOGIC: No focal deficit. Cranial nerves II through XII are grossly intact. No headache, no double vision or headache. SKIN: Not dry. Intact. Turgor - normal. LYMPHATIC: No palpable lymph nodes/no lymphedema. MUSCULOSKELETAL: Normal joints with no swelling. Muscle tone is normal. PLAN: The patient will undergo echo to evaluate her LV function as she gets short of breath out of proportion to her chronic lung disease. She had PFT done 4 to 5 months ago. Strongly advised to followup with primary care. She is advised to lose weight, increase exercise tolerance. Pulmonary rehab recommended. The patient is seen and examined with the nurse practitioner. TIME SPENT: More than 30 minutes. Plan and coordination of the patient's care discussed in the presence of nurse. ARY
--- NOTE | 2018-07-19 13:54 | CM.DICTOOL ---
ADMISSION: 07/16/18 18:59 DISCHARGE: JULY 19, 2018 DATE OF SERVICE: 07/19/18 FINAL DIAGNOSIS ACUTE COPD EXACERBATION PULMONARY NODULES, LEFT LUNG PER CT COPD HYPERTENSION DYSLIPIDEMIA CHRONIC BACK PAIN COMPRESSION DEFORMITY AT T12, THORACOLUMBAR X-RAY AT [facility], 07/02/18 OSTEOPOROSIS/OSTEOPENIA BOTH HIPS, BONE DENSITY STUDY AT [facility], 11/06/17 DIVERTICULOSIS, CT ABD/PELVIS AT [facility], 09/27/17 HYSTERECTOMY BLADDER CANCER LAST PFT AT [facility], 01/11/18 MODERATE COPD EVERYDAY SMOKER LAST VITALS Temp Pulse Resp BP Pulse Ox 98.0 F 79 18 136/82 94 L 07/19/18 06:00 07/19/18 06:00 07/19/18 06:00 07/19/18 06:00 07/19/18 06:00 TAKE THESE MEDICATIONS AT HOME Albuterol Sulfate (Proair Hfa) 2 puff IH Q6HR PRN PRN Reason: Shortness of air Atorvastatin Calcium (Lipitor) 20 mg PO BEDTIME [facility] Last Admin: 07/18/18 21:28 Dose: 20 mg Budesonide (Pulmicort 0.5 Mg/2 Ml) 1 vial NEB DAILY [facility] Last Admin: 07/19/18 04:50 Dose: 1 vial PREDNISONE 20 MG BID FOR 2 DAYS, THEN DAILY FOR 3 DAYS LAST ADMIN: OMNICEF 300 MG PO BID FOR 7 DAYS LAST ADMIN: ALBUTEROL 0.083% NEB TID LAST ADMIN: Losartan Potassium (Cozaar) 50 mg PO DAILY [facility] Last Admin: 07/19/18 10:19 Dose: 50 mg ALLERGIES No Known Allergies Allergy (Unverified 07/16/18 13:06) DISCONTINUED MEDICATIONS NEW PRESCRIPTIONS: OMNICEF 300 MG BID FOR 7 DAYS PREDNISONE 20 MG BID FOR 2 DAYS, THEN 20 MG DAILY FOR 3 DAYS PULMICORT 1 VIAL IN NEBULIZER DAILY ALBUTEROL NEB 1 VIAL THREE TIMES A DAY SMOKING: ADVISED TO STOP SMOKING DISEASE SPECIFIC EDUCATION: SMOKING CESSATION USE OF NEBULIZER USE OF OXYGEN PRESCRIPTIONS APPOINTMENTS LAB REVIEW: 07/19/18 05:25 07/19/18 05:25 07/19/18 05:25: Sodium 139.0, Potassium 4.52, Chloride 102.6, Carbon Dioxide 31.2 H, Anion Gap 9.72, BUN 12.0, Creatinine 0.50 L, Estimated GFR (MDRD) 126.00 , BUN/Creatinine Ratio 24.00, Glucose 128.7 H, Calcium 8.51, Total Bilirubin 0.16 L, AST 19.0, ALT 31.2, Alkaline Phosphatase 65.6, Total Protein 6.50, Albumin 3.18 L, Globulin 3.32, Albumin/Globulin Ratio 0.95 07/19/18 05:25: WBC 12.13 H, RBC 4.72, Hgb 14.3, Hct 42.8, MCV 90.7, MCH 30.3, MCHC 33.4, RDW Coeff of Bryan 12.5, Plt Count 344, Immature Gran % (Auto) 3.5, Neut % (Auto) 71.5, Lymph % (Auto) 20.1, [place] % (Auto) 4.4, Eos % (Auto) 0.1, Baso % (Auto) 0.4, Immature Gran # (Auto) 0.4, Neut # (Auto) 8.7 H, Lymph # ( Auto) 2.4, [place] # (Auto) 0.5, Eos # (Auto) 0.0, Baso # (Auto) 0.1 PLAN: DISCHARGE HOME DIET: REGULAR TOLERATED ACTIVITY: GRADUALLY RESUME TOLERATED USE OXYGEN AT 2 LITERS PER NASAL CANNULA AN APPOINTMENT HAS BEEN SCHEDULED WITH [facility] AT [facility] LOCATED ON [address] ON JULY 26 AT 10:45 AM A REFERRAL HAS BEEN MADE TO THE [facility] IN [place], [place]. YOU WILL BE CALLED WITH AN APPOINTMENT PLEASE USE OXYGEN AT 2 LITERS CONTINUOUSLY USE NEBULIZER TREATMENTS THREE TIMES A DAY CODE STATUS: FULL CODE MS. STALLINGS IS ALERT AND ORIENTED X 3. DISCHARGE PLANS HAVE BEEN DISCUSSED AND SHE IS AGREEABLE. SHE LIVES AT HOME BY HERSELF. SHE IS INDEPENDENT WITH ALL ACTIVITIES OF DAILY LIVING. SHE IS AMBULATORY WITHOUT ASSISTANCE OR USE OF ASSISTIVE DEVICE. SHE HAS USED OXYGEN AT 2 LITERS DURING HER STAY. MEAL INTAKES ARE GOOD AT 50-100%. LIQUID INTAKE IS GOOD. SHE IS CONTINENT OF BLADDER AND BOWEL. SKIN TURGOR IS GOOD. NO RASHES OR DECUBITUS ULCERS ARE NOTED. FATOU ESQUIVEL MD ODESSA NEELY APRN
[2018-07-19 14:11] VITALS: BP 137/100; TEMP 97.7
--- NOTE | 2018-07-22 07:49 | PN ---
DATE OF SERVICE: 07/19/18 SUBJECTIVE: The patient was seen and examined with the Nurse Practitioner and also during the time that the echo was done. Her condition has improved remarkably. She is afebrile up and about with mild cough noted. CT scan of the chest showed lingular lobe consolidation which doesn't go along with the clinical findings. The patient has some abnormal finding, there is a nodule in the lung for which she is going to be seen by the pulmonary physician. I explained to her about it and she agreed. The patient is also going to be seeing Blanca Rosales, Nurse Practitioner her primary care. The patient is strongly advised to do that. The patient smokes three to four packs per day.Very poor lifestyle, BMI is more than 30. The patient is noncompliant of the lifestyle, medications. Prognosis of this patient is not good considering her bigger problems. Echocardiogram showed borderline LVH with borderline RV cavity enlargement, normal LV contractility. Her shortness of breath seems to be coming from her lung problems. She was put on steroids, antibiotics and advised to stay in, quit smoking, follow up with Blanca and primary MD. CONDITION: Stable. TIME SPENT: More than 30 minutes. Plan and coordination of the patient's care discussed in the presence of nurse. ARY
--- NOTE | 2018-07-22 07:50 | PN ---
07/16/18: Level 5 07/17/18: Intermediate 07/18/18: Intermediate 07/19/18: D as in discharge MTDD
--- NOTE | 2018-07-22 09:19 | ECHO2D ---
Date of Exam: 07/19/18 Ordering Physician: DR. FATOU ESQUIVEL--HOSPITALIST/OSEI PHAM APRN Room #: 116 Reason for Echo: SOA, HYPERTENSION M-Mode Normal Adult Results LV Dimensions Normal Adult Results AoV Opening excursions >1.6 >1.6 LVEDD-base- 3.5-5.8 4.5 Ao root dimensions 2.0-3.7 3.3 LVESD-base- 3.1-4.6 L. Atrium dimensions 1.9-3.8 4.2 Post. Wall thickness 0.8-1.1 1.2 IV septum (thickness) 0.7-1.2 1.2 Post. Wall excursion 0.72-1.3 Septal motion NORMAL Systolic motion R. Ventricular cavity 1.5-2.0 NORMAL LVEF 60% 73% Paradoxical septal wall motion NORMAL 2-D : 2-D M Mode Echocardiogram was performed using apical four chamber and left parasternal long and short axis views. Mitral, tricuspid and aortic valves appear to be normal. Contractility of the left ventricle seems to be normal, so is the cavity size. Enlarged Left atrial cavity size. Aortic root appears to be normal. There is no pericardial effusion. There is no thrombus noted in the left ventricular or left aortic cavity. No mitral valve prolapse noted. M-MODE: MV: NORMAL AV: NORMAL TV: NORMAL PV: CHAMBER SIZE: ENLARGED LEFT ATRIAL CAVITY WALL MOTION: NORMAL PERICARDIUM: NORMAL INTERPRETATION: 1. BORDERLINE LEFT HYPERTROPHY WITH ENLARGED LEFT ATRIAL CAVITY 2. NORMAL LEFT VENTRICULAR CONTRACTILITY 3. NORMAL VALVES MTDD
--- NOTE | 2018-07-22 10:58 | DS ---
DATE OF SERVICE: 07/19/18 FINAL DIAGNOSIS: 1. ACUTE COPD EXACERBATION 2. PULMONARY NODULES, LEFT LUNG PER CT 3. COPD 4. HYPERTENSION 5. DYSLIPIDEMIA 6. CHRONIC BACK PAIN 7. 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 OSTEOPOROSIS/OSTEOPENIA BOTH HIPS, BONE DENSITY STUDY AT [facility], 11/06/17 9. DIVERTICULOSIS, CT ABDOMEN/PELVIS AT [facility], 09/27/17 10. HYSTERECTOMY 11. BLADDER CANCER 12. LAST PFT AT [facility], 01/11/18 13. MODERATE COPD 14. EVERYDAY SMOKER LAST VITALS: Temperature 98.0, pulse 79, respiratory rate 18, BP 136/82, pulse ox 94L DISCHARGE INSTRUCTIONS: 1. Followup appointment has been scheduled with Blanca Rosales at [facility] located on [address] on July 26 at 10:45 a.m. A referral has been made to the [facility] in [place], [place]. You will be called with an appointment. 2. Please use oxygen at 2L continously. 3. Use nebulizer treatments three times a day. MEDICATIONS AT DISCHARGE: Proair two puff IH q.6hr p.r.n. Lipitor 20 mg p.o. bedtime NEVILLE Pulmicort 0.5 mg/2mL one vial neb daily [facility] Prednisone 20 mg b.i.d. for 2 days, the daily for 3 days Omnicef 300 mg p.o. b.i.d. for 7 days Albuterol 0.083% neb t.i.d. Losartan (Cozaar) 50 mg p.o. daily [facility] NEW PRESCRIPTIONS: Omnicef 300 mg b.i.d. for 7 days Prednisone 20 mg b.i.d. for 2 days, then 20 mg daily for 3 days Pulmicort one via in nebulizer daily Albuterol neb one vial three times a day DIET INSTRUCTIONS: Regular as tolerated ACTIVITY: Gradually resume as tolerated SMOKING: Advised to stop DISEASE SPECIFIC EDUCATION: Smoking cessation Use of nebulizer Use of oxygen Prescriptions Appointments HOSPITAL COURSE: This is a 62-year-old white female who presented to the emergency room with cough, wheezing and shortness of breath. She is a patient of the [facility] and sees Blanca Rosales. She has a history of COPD. Chest CT revealed COPD exacerbation, inflammatory changes, also multiple pulmonary nodules which were infectious vs neoplastic. They recommended a repeat CT scan following treatment of the infection. She was admitted, placed on Rocephin 1 gm IV daily along with Zithromax 500 mg p.o. daily times three days. We started her on Xopenex neb treatments. She had not been on any steroid inhaler, had only had an Albuterol inhaler at home. We put her on Pulmicort neb solution to do b.i.d We also put her on Solu-Cortef 125 mg IV q.6hr. After the second day we were able to wean her to q.8hr then yesterday I weaned her to Solu-Cortef q.12hr and she has tolerated this all well. She has shown improvement with the Pulmicort nebulizer. We will send her home with an order for a nebulizer machine as well as Albuterol neb solution and Pulmicort neb solution which she is to do 1 mg at night daily. She has a history of smoker. Information has been given to her regarding smoking cessation. Repeat chest CT was done today. The nodules were persistent so we have made a referral to Dr. Good, the [facility] in [place] which she states she has seen in the past but has not seen recently and did not keep her followup. Clinically, as she has improved upon examination this morning, she has no wheezing. She has had no fever, no chills. We did do a three-step oxygen test and she does qualify for home 02 which we will also send her home with. She had a PFT done in January in 2018. Dr. Piedra did an echo today which showed borderline LVH. Again, information has been provided regarding blood pressure control, exercise daily and recommended weight loss. Dr. Amaya or Latisha's office, the electric accounting machine operator, is supposed to contact her with an appointment. Again she routinely sees Blanca Rosales at the [facility]. She has an appointment to see her next week. We will send her home with Omnicef 300 mg p.o. b.i.d. for the next 7 days along with Prednisone 20 mg b.i.d. for 2 days and daily for 3 days. Again, she has an order for oxygen. We will discharge her in stable condition. Again, she is to followup with Blanca Rosales next week. TIME SPENT: More than 60 minutes. MTDD
== END 2018-07-19 14:50 | disposition home or self-care (01) | DRG 192 ==
LOC: ED 12:59 → MEDSURG B 18:59
PROVIDERS: ADMIT Internal Medicine; ATTEND Internal Medicine
DX: J44.1 Chronic obstructive pulmonary disease with (acute) exacerbation (principal); I10 Essential (primary) hypertension; E78.5 Hyperlipidemia, unspecified; M54.9 Dorsalgia, unspecified; M48.54XD Collapsed vertebra, not elsewhere classified, thoracic region, subsequent encounter for fracture with routine healing; M81.0 Age-related osteoporosis without current pathological fracture; K57.90 Diverticulosis of intestine, part unspecified, without perforation or abscess without bleeding; R73.9 Hyperglycemia, unspecified; R06.02 Shortness of breath; R06.00 Dyspnea, unspecified; R06.2 Wheezing; R06.01 Orthopnea; R91.8 Other nonspecific abnormal finding of lung field; Z72.0 Tobacco use
CPT/HCPCS: 36415; 80053; 82550; 82803; 82962; 83036; 83605; 84145; 84484; 85025; 87040; 87502; 87651; 93005; 93010; 94640; 94761; 96365; 96375; 99284

== ENCOUNTER 2018-07-26 11:42 | Outpatient (CLI) ==
--- NOTE | 2018-07-28 10:12 | MRI ---
EXAM: Lumbar spine MRI without contrast. HISTORY: L1 compression fracture. Fell at work. COMPARISON: Thoracolumbar spine radiographs 07/02/2018, chest radiograph 01/11/2018, chest CT [address] abdomen and pelvis 09/27/2017. TECHNIQUE: Multiplanar, multisequence MR images were acquired of the lumbar spine without contrast. FINDINGS: Transitional spinal anatomy is present at the thoracolumbar junction. There are vestigial ribs bilaterally at L1 and the lower four lumbar vertebra are non-rib bearing. This is concordant w ith previous studies which demonstrate 12 classic rib-bearing thoracic vertebra and small ribs bilate rally at L1. Conus medullaris ends low at L2-3 and has normal morphology and signal intensity. Preston l diameter is developmentally mildly narrow. There is minor acute kyphosis at T12-L1 and 1-2 mm righ tward translation of L5 with respect to L4 and a trace anterolisthesis of L4 on L5. The L2-L5 lumbar vertebra are normal in height. Intrinsic bone marrow signal is mildly heterogeneous with small area s of fatty infiltration and a benign intraosseous hemangioma at L3. There is a mild subacute left an terior superior endplate compression fracture of L1 which is unchanged compared to the 07/02/2018 [facility] racolumbar spine radiographs. There is mild endplate irregularity in the lumbar spine from L1-2 thro ugh L3-4 with small chronic Schmorl's nodes along the T12 and L3 inferior endplates. There is centra l disc desiccation at L3-4 and desiccation of the remaining lumbar intervertebral discs. There is a mild disc bulge at L4-5 that is asymmetric to the right with mild right lateral disc space narrowing, small endplate osteophytes and type 2 endplate changes. At L5-S1, there is a diffuse disc osteophyt e complex with moderate to marked disc space narrowing that is asymmetric to the left with mild endpl ate irregularity and type 2 endplate changes. The partially visualized liver, spleen and kidneys are unremarkable. There are no paravertebral mass es. T12-L1: There is a 25-30% left anterior superior endplate compression fracture of L1 with 1 mm retro pulsion of the L1 posterior superior endplate, a minor posterior disc bulge and small right paracentr al disc protrusion. There is mild irregular concavity of the L1 posterior superior endplate with mil d bright STIR signal edema and a prominent Schmorl's node. There is minor right anterior superior co rtical buckling with a trabecular microfracture that extends from the right anterior superior cortex to the right posterior superior cortex with posterior cortical buckling and faint bright STIR signal edema along the fracture that is greatest anteriorly. There is also a subtle fracture that extends f rom the left posterior superior endplate to the left posterior cortex with 1 mm retropulsion of the s uperior endplate and T12-L1 intervertebral disc. There is no central canal stenosis. Neural foramin a are patent. L1-2: The intervertebral disc is normal. L2-3: The intervertebral disc is normal. L3-4: There is a minor disc bulge that minimally narrows the inferior neural foramina bilaterally an d there is minor left and mild right facet hypertrophy. This produces minor left neural foraminal st enosis. L4-5: There is a mild bilobed disc bulge that is asymmetric to the right with a small right foramina l disc protrusion that encroaches on the right L4 nerve exiting the neural foramen. Mild to moderate right and mild left hypertrophic facet arthropathy and ligamentum flavum hypertrophy is present. Th ere is mild bilateral neural foraminal stenosis. L5-S1: There is a mild diffuse disc bulge with a small broad-based central disc protrusion that cont acts the anterior left S1 nerve. Mild bilateral facet arthropathy and ligamentum flavum hypertrophy is present. There is mild left neural foraminal stenosis. IMPRESSION: 1. Mild subacute 25-30% left anterior superior endplate compression fracture of L1 with 1 mm retropu lsion and a small right paracentral T12-L1 intervertebral disc without spinal stenosis. 2. Transitional spinal anatomy with the sagittal roots bilaterally at L1. 3. Mild lumbar degenerative spondylosis without spinal stenosis. 4. Small right foraminal disc protrusion L4-5 that encroaches on the right L4 nerve. 5. Small broad-based central disc protrusion L5-S1.
== END 2018-07-26 11:43 | disposition home or self-care (01) ==
LOC: RAD 11:42
PROVIDERS: ATTEND Specialist
DX: S32.010A Wedge compression fracture of first lumbar vertebra, initial encounter for closed fracture (principal)

== ENCOUNTER 2018-08-02 11:24 | Outpatient (CLI) ==
--- NOTE | 2018-08-02 12:20 | DI ---
Exam: Chest x-ray two-view. HISTORY: Pneumonia. Comparison: 01/11/2018. Findings: Two views of the chest are submitted. These demonstrate hyperexpanded lungs with new appe arance of alveolar and interstitial opacity in the lateral left mid and lower lung. There is no pneu mothorax. The cardiac silhouette is within normal limits of size. The thoracic aorta is partially c alcified. Mild degenerative findings are noted the spine with new appearance of mild anterior wedge compression deformity of what may be be L1 vertebral body. No listhesis. Impressions: New opacity in the lateral left mid and lower lung consistent with given history of pne umonia. Follow-up PA and lateral radiographs of the chest after appropriate therapy recommended to c onfirm resolution. Hyperexpanded lungs consistent with chronic obstructive pulmonary disease.
== END 2018-08-02 11:25 | disposition home or self-care (01) ==
LOC: RAD 11:24
PROVIDERS: ATTEND Nurse Practitioner Family
DX: J18.9 Pneumonia, unspecified organism (principal)

== ENCOUNTER 2018-08-29 13:00 | Outpatient (RCR) ==
--- NOTE | 2018-08-08 15:57 | RS.OPPTEV2 ---
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 pt sustained L1, compression fracture. 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 Functional Limitations: Sleep, Standing, Bending, Squatting, Ambulation, Community Access/Integration Current Subjective/complaints:: pt states she is feeling some better. States she was just in hospital last week with pneumonia, states she should be on O2 at all times, however only wears when she decides ot wear it. Treatment Side (optional): N/A *Precautions: pt with history of bladder CA Medical History Medical History: Hypertension, COPD, Cancer (bladder CA) Surgical History: Hysterectomy Smoking Status: Current every day smoker Diagnostic Testing/Imaging:: MRI Lumbar spine: mild subacute 25-30% L ant superior endplate compression fx of L1. Mild lumbar degenerative spondylosis without spinal stenosis, Small R foraminal disc protrusion L4-L5 that encroaches on R L4 nerve, Small central disc protrusion L5-S1. Hx Home Medications: losartan, atorvastatin Patient's Goals: decrease low back pain, be able to stand without increased pain Pain Assessment - Pain Description Pain Location: lumbar spine Pain Description: Tightness, Aching Current Pain Intensity: 4/10 Functional Outcome Measure Oswestry LBP: 25 - G Codes & Severity Modifier G Codes & Modifier: n/a Source of G Code score: n/a Observation - Observation Inspection: muscle tightness noted in BLE hamstring and piriformis muscles. Posture: Forward Head, Rounded Shoulders, Increased Thoracic Kyphosis, Decreased Lumbar Lordosis Handedness: Right Gait - Gait Pattern Gait Comments: pt amb without AD with decreased step length with flexed posture. General Range of Motion: BUE WFL's. BLE WFL's Muscle Strength: BUE grossly 4/5. BLE hip flex 4-/5, knee flex/ext 4/5, ankle DF/PF 4/5 - ROM Lumbar Flexion: Hand reach to ankles Sidebending to Left: Reach to Lateral Joint Line Sidebending to Right: Reach to Mid-thigh (with increased pain) Lumbar Spine ROM Limitations: Soft Tissue Tightness, Muscle Weakness, Pain - Strength Trunk Extension: 4- Good- Trunk Flexion: 4- Good- Trunk Lateral Flexion: 3+ Fair+ Trunk Rotation: 4- Good- - Special Tests MICHELE Test: Negative Right SLR Test: Negative Left, Negative Right Seated Dural Stretch Test: Negative Left, Negative Right SI Joint Compression: Negative Palpation Palpation Findings: Tenderness, Muscle Guarding Comments:: pt with tenderness as well as muscle guarding in area of lumbar area Sensation - Sensation Right Upper Extremity: Intact/Normal Left Upper Extremity: Intact/Normal Right Lower Extremity: Intact/Normal Left Lower Extremity: Intact/Normal Balance - Sitting Balance Static Sitting Balance: Good Dynamic Sitting Balance: Good - Standing Balance Static Standing Balance: Good Dynamic Standing Balance: Fair - Heat/Cryotherapy Treatment: Hot Pack Comments:: lumbar spine Interventions - Exercise/Activities/Manual Therapy Exercises/Activities: pt performs pelvic tilt, isometric hip add, resisted hip abd, hamstring stretch Manual Therapy: n/a HOME EXERCISE PROGRAM: pt given written HEP including: pelvic tilt, isometric hip add, resisted hip abd, hamstring stretch - Charges Timed Code Treatment Minutes: 49 Total Treatment Time: 62 Procedures billed for this date of service:: eval med, ex, HP EVALUATION COMPLEXITY LEVEL EVALUATION COMPLEXITY LEVEL: HISTORY: Medium, EXAM OF BODY SYSTEMS: Medium, CLINICAL PRESENTATION: Medium, CLINICAL DECISION MAKING: Medium Assessment Assessment: pt presents with low back pain with muscle tightness, guarding. pt with decreased strength BLE as well as limited lumbar ROM. Feel pt would benefit from skilled PT for therex for LE strengthening, stretching and modalities to decrease pain and inflammation. Patient Education: Home Exercise Program, Education of Plan of Care Rehab Potential: Good Short Term Goals Goal #1: pt independent with initial HEP Goal to be met by: 08/22/18 Goal #2: pt with improved Lumbar ROM WFL's with decreased pain Goal to be met by: 08/22/18 Goal #3: Improve hamstring/piriformis flexibilty Goal to be met by: 08/22/18 Goal #4: Improve BLe strength 4 to 4+/5 Goal to be met by: 08/22/18 [facility] Goals Goal #1: pt rate pain <4/10 Goal to be met by: 09/06/18 Goal #2: pt report ability to stand to complete household tasks w less pain Goal to be met by: 09/06/18 Goal #3: pt rate oswestry scale < 20 Goal to be met by: 09/06/18 Plan - Treatment to be Provided Procedures: Therapeutic Exercises, Manual Therapy, Massage, Patient Education Modalities: Electrical Stimulation, Cryotherapy, Hot Packs - Treatment Plan Frequency: 3 X week Duration: 4 weeks Dates of Remediation Technician Goals: 09/06/18 Expiration date of current Insurance Approval:: 09/06/18 - Treatment Code (1) Low back pain Code(s): M54.5 - LOW BACK PAIN Qualifiers: Chronicity: chronic Back pain laterality: unspecified Sciatica presence: without sciatica Qualified Code(s): M54.5 - Low back pain; G89.29 - Other chronic pain (2) Compression fracture of L1 lumbar vertebra Code(s): S32.010A - WEDGE COMPRESSION FRACTURE OF FIRST LUMBAR VERTEBRA, INIT Qualifiers: Encounter type: initial encounter Fracture type: closed Qualified Code(s) : S32.010A - Wedge compression fracture of first lumbar vertebra, initial encounter for closed fracture (3) Muscle tightness Code(s): M62.89 - OTHER SPECIFIED DISORDERS OF MUSCLE (4) Muscle weakness Code(s): M62.81 - MUSCLE WEAKNESS (GENERALIZED)
--- NOTE | 2018-08-12 16:10 | RS.OPPTDN ---
Subjective Date of Note: 08/12/18 Visit #: 2 Number of visits approved by Insurance: 3x4 Date of Evaluation: 08/08/18 Payer Source: Workman's Comp Treatment Diagnosis: L1 compression fx, low back pain, muscle weakness Current Subjective/complaints:: Patient says she is "sore." Reports she began HEP over the weekend and had mild soreness afterwards. She says she would like to return to work, but fears she will be unable to due to her back condition and the constant sitting that is required. *Precautions: pt with history of bladder CA - Heat/Cryotherapy Treatment: Hot Pack (to the mid to low back in sitting x 20 mins) Interventions - Exercise/Activities/Manual Therapy Exercises/Activities: Patient begins with passive SKTC, HS, Piriformis, and figure 4. All bilaterally x 3 reps ea. She performs ball squeezes for isometric hip add, isometric hip abd, isometric hip flexion and QS bilaterally x 10. Began education on benefits of all therex performed and diagnosis, anatomy, and proper body mechanics. Total minutes of Exercise: 19 Manual Therapy: n/a HOME EXERCISE PROGRAM: pt given written HEP including: pelvic tilt, isometric hip add, resisted hip abd, hamstring stretch - Charges Timed Code Treatment Minutes: 19 Total Treatment Time: 39 Procedures billed for this date of service:: hp, ex Assessment: Patient able to latisha beginning stretches and trunk stability exercises. She demo mild fatigue with ball squeezes. She has initiated HEP at this time and will progress therex in further sessions. May add estim to treatment next session to reduce pain further and latisha therex better. Patient Education: Education of diagnosis, Body/Joint mechanics, Home Exercise Program, Activity Modification, Education of Plan of Care Patient demonstrates compliance with HEP?: Yes Short Term Goals Goal #1: pt independent with initial HEP Goal to be met by: 08/22/18 Progress towards Goal:: Progressing Goal #2: pt with improved Lumbar ROM WFL's with decreased pain Goal to be met by: 08/22/18 Goal #3: Improve hamstring/piriformis flexibilty Goal to be met by: 08/22/18 Goal #4: Improve BLe strength 4 to 4+/5 Goal to be met by: 08/22/18 Hospice Care Sales Consultant Goals Goal #1: pt rate pain <4/10 Goal to be met by: 09/06/18 Goal #2: pt report ability to stand to complete household tasks w less pain Goal to be met by: 09/06/18 Goal #3: pt rate oswestry scale < 20 Goal to be met by: 09/06/18 Plan Dates of Hospice Care Sales Consultant Goals: 09/06/18 Expiration date of current Insurance Approval:: 09/06/18 PLAN: Patient to continue for modalities and therex for mid to low back.
--- NOTE | 2018-08-14 15:15 | RS.OPPTDN ---
Subjective Date of Note: 08/14/18 Visit #: 3 Number of visits approved by Insurance: 12 approved with w/c Date of Evaluation: 08/08/18 Payer Source: Workman's Comp Treatment Diagnosis: L1 compression fx, low back pain, muscle weakness Current Subjective/complaints:: Patient says, "I think I feel a little better." Reports she does not feel she had any increase in soreness related to beginning exercises at last visit. She reports soreness however, from packing/ unpacking small items to move into camper trailer. *Precautions: pt with history of bladder CA Pain Assessment - Pain Description Pain Location: mid thoracic to lumbar paraspinals - Treatment Modality: Electrical Stim Unattended Parameters/Method Applied: IFC @ 17ma to mid thoracic and mid lumbar paraspinals x 20 mins Patient Position: Sitting - Heat/Cryotherapy Treatment: Hot Pack (mid to low back) Interventions - Exercise/Activities/Manual Therapy Exercises/Activities: Patient begins with passive SKTC, HS, Piriformis, and figure 4. All bilaterally x 3 reps ea. She performs ball squeezes for isometric hip add, isometric hip abd, isometric hip flexion and QS bilaterally x 10. Sitting: shoulder shrugs, scap adduction, postural mechanics/education, 1# wand for bilateral shoulder flexion, green tband on wand for scap retraction x 10. Reviewed HEP. Total minutes of Exercise: 23 Manual Therapy: n/a HOME EXERCISE PROGRAM: pt given written HEP including: pelvic tilt, isometric hip add, resisted hip abd, hamstring stretch - Charges Timed Code Treatment Minutes: 23 Total Treatment Time: 43 Procedures billed for this date of service:: hp, estim (un), ex Assessment: Patient with mild increase in pain yesterday from packing/unpacking small items to move into her camper. She had help with heavier objects. She is able to latisha all added therex and admitted improved pain with beginning estim. She should benefit from further modalities and therex to assist with posture and strength for the mid to low back. Patient Education: Body/Joint mechanics, Home Exercise Program Patient demonstrates compliance with HEP?: Yes Short Term Goals Goal #1: pt independent with initial HEP Goal to be met by: 08/22/18 Progress towards Goal:: Progressing Goal #2: pt with improved Lumbar ROM WFL's with decreased pain Goal to be met by: 08/22/18 Goal #3: Improve hamstring/piriformis flexibilty Goal to be met by: 08/22/18 Progress towards Goal:: Progressing Goal #4: Improve BLe strength 4 to 4+/5 Goal to be met by: 08/22/18 Halfway Goals Goal #1: pt rate pain <4/10 Goal to be met by: 09/06/18 Goal #2: pt report ability to stand to complete household tasks w less pain Goal to be met by: 09/06/18 Goal #3: pt rate oswestry scale < 20 Goal to be met by: 09/06/18 Plan Dates of Halfway Goals: 09/06/18 Expiration date of current Insurance Approval:: 09/06/18 PLAN: Continue BIW per POC
--- NOTE | 2018-08-16 16:37 | RS.OPPTDN ---
Subjective Date of Note: 08/16/18 Visit #: 4 Number of visits approved by Insurance: 12 Date of Evaluation: 08/08/18 Payer Source: Workman's Comp Treatment Diagnosis: L1 compression fx, low back pain, muscle weakness Current Subjective/complaints:: Patient says treatment is helping reduce her back pain. Patient says she has been performing HEP. *Precautions: pt with history of bladder CA - Treatment Modality: Electrical Stim Unattended Parameters/Method Applied: hivolt 4 large pads controlled vertically @ 240 pk volts x 20 mins to the mid thoracic and lumbar paraspinals Patient Position: Sitting - Heat/Cryotherapy Treatment: Hot Pack Comments:: mid to low back with estim Interventions - Exercise/Activities/Manual Therapy Exercises/Activities: Patient continues to receive passive SKTC, HS, Piriformis , and figure 4. All bilaterally x 3 reps ea. Lower trunk rotation x 3. She performs ball squeezes for isometric hip add, isometric hip abd, isometric hip flexion and QS bilaterally x 10. Sitting: shoulder shrugs, scap adduction, postural mechanics/education, 1# wand for bilateral shoulder flexion, green tband on wand for scap retraction 2 x 10. Reviewed HEP. Total minutes of Exercise: 18 Manual Therapy: n/a HOME EXERCISE PROGRAM: pt given written HEP including: pelvic tilt, isometric hip add, resisted hip abd, hamstring stretch - Charges Timed Code Treatment Minutes: 18 Total Treatment Time: 38 Procedures billed for this date of service:: hp, estim (un), ex Assessment: Patient continues to experience mild back pain reduction. She demo forward flexed posture and moderate mm guarding throughout the thoracic paraspinals. She continues to be compliant with HEP at this time. Patient Education: Body/Joint mechanics, Home Exercise Program, Education of Plan of Care Patient demonstrates compliance with HEP?: Yes Short Term Goals Goal #1: pt independent with initial HEP Goal to be met by: 08/22/18 Progress towards Goal:: Progressing Goal #2: pt with improved Lumbar ROM WFL's with decreased pain Goal to be met by: 08/22/18 Progress towards Goal:: Progressing Goal #3: Improve hamstring/piriformis flexibilty Goal to be met by: 08/22/18 Progress towards Goal:: Progressing Goal #4: Improve BLe strength 4 to 4+/5 Goal to be met by: 08/22/18 Long-Term Goals Goal #1: pt rate pain <4/10 Goal to be met by: 09/06/18 Goal #2: pt report ability to stand to complete household tasks w less pain Goal to be met by: 09/06/18 Goal #3: pt rate oswestry scale < 20 Goal to be met by: 09/06/18 Plan Dates of Senior C Software Developer Goals: 09/06/18 Expiration date of current Insurance Approval:: 09/06/18 PLAN: Patient to continue for modalities to ease back pain and tightness as well as progression of therex to possibly improve posture and awareness and strengthen the LEs to provide stability to her T-L spine.
--- NOTE | 2018-08-19 16:27 | RS.OPPTDN ---
Subjective Date of Note: 08/19/18 Visit #: 5 Number of visits approved by Insurance: 12 Date of Evaluation: 08/08/18 Payer Source: Workman's Comp Treatment Diagnosis: L1 compression fx, low back pain, muscle weakness Current Subjective/complaints:: Patient says she can tell she is having a little less back pain, but says she does things on her own to keep it aggravated. Does not name specific tasks. Pain is described at her shoulder blades and mid to low back. *Precautions: pt with history of bladder CA - Treatment Modality: Electrical Stim Unattended Parameters/Method Applied: Hivolt 4 large pads controlled at the mid scapular region and lower thoracic paraspinals @ 245-255 pk volts x 20 mins Patient Position: Sitting - Heat/Cryotherapy Treatment: Hot Pack (upper, mid,low back) Interventions - Exercise/Activities/Manual Therapy Exercises/Activities: Patient continues to receive passive SKTC, HS, Piriformis , and figure 4. All bilaterally x 3 reps ea. Lower trunk rotation x 3. She performs ball squeezes for isometric hip add, isometric hip abd, isometric hip flexion and QS bilaterally x 10. Sitting: shoulder shrugs, scap adduction, postural mechanics/education, 1# wand for bilateral shoulder flexion with cues for proper posture, green tband on wand for scap retraction 2 x 10. Reviewed HEP. Total minutes of Exercise: 19 Manual Therapy: n/a HOME EXERCISE PROGRAM: pt given written HEP including: pelvic tilt, isometric hip add, resisted hip abd, hamstring stretch - Charges Timed Code Treatment Minutes: 19 Total Treatment Time: 39 Procedures billed for this date of service:: hp, estim (un), ex Assessment: Patient improving slowly with pain reduction. She latisha all stretching and general LE strengthening. She continues to demo poor forward flexed posture, but does correct with cueing. Patient Education: Home Exercise Program, Education of Plan of Care Patient demonstrates compliance with HEP?: Yes Short Term Goals Goal #1: pt independent with initial HEP Goal to be met by: 08/22/18 Progress towards Goal:: Progressing Goal #2: pt with improved Lumbar ROM WFL's with decreased pain Goal to be met by: 08/22/18 Progress towards Goal:: Progressing Goal #3: Improve hamstring/piriformis flexibilty Goal to be met by: 08/22/18 Progress towards Goal:: Progressing Goal #4: Improve BLe strength 4 to 4+/5 Goal to be met by: 08/22/18 Correction Goals Goal #1: pt rate pain <4/10 Goal to be met by: 09/06/18 Goal #2: pt report ability to stand to complete household tasks w less pain Goal to be met by: 09/06/18 Goal #3: pt rate oswestry scale < 20 Goal to be met by: 09/06/18 Plan Dates of Correction Goals: 09/06/18 Expiration date of current Insurance Approval:: 09/06/18 PLAN: Patient to continue with estim and progressive therex.
--- NOTE | 2018-08-21 15:37 | RS.OPPTDN ---
Subjective Date of Note: 08/21/18 Visit #: 6 Number of visits approved by Insurance: 12 Date of Evaluation: 08/08/18 Payer Source: Workman's Comp Treatment Diagnosis: L1 compression fx, low back pain, muscle weakness Current Subjective/complaints:: Patient says she has been hurting more at the shoulder blades and upper back. 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 *Precautions: pt with history of bladder CA - Treatment Modality: Electrical Stim Unattended Parameters/Method Applied: Hivolt 4 large pads controlled horizontally to the upper back (scapula) and mid thoracic paraspinals @ 185 pk volts x 20 mins Patient Position: Sitting - Heat/Cryotherapy Treatment: Hot Pack (mid back to low back in sitting with estim) Interventions - Exercise/Activities/Manual Therapy Exercises/Activities: Patient continues to receive passive SKTC, HS, Piriformis , and figure 4. All bilaterally x 3 reps ea. Lower trunk rotation x 3. She performs ball squeezes for isometric hip add, isometric hip abd, hooklying green tband for bilateral hip abd, isometric hip flexion and QS bilaterally x 10. Began bridging x 10. Standing against the wall for postural education, shoulder shrugs, 1# wand for bilateral shoulder flexion, scap retraction with green tband x 12. Total minutes of Exercise: 19 Manual Therapy: n/a HOME EXERCISE PROGRAM: pt given written HEP including: pelvic tilt, isometric hip add, resisted hip abd, hamstring stretch - Charges Timed Code Treatment Minutes: 19 Total Treatment Time: 39 Procedures billed for this date of service:: hp, estim (un), ex Assessment: Patient experiencing increased upper and mid back pain probably related to poor forward flexed posture. She has had pain reduction to the lower back through treatment and modalities are helping upper and mid back also , but slower recovery. She does try to correct with postural prompting and through addition of therex today at wall. She should improve weakness to this area through continued strengthening exercises and estim to reduce mm guarding and pain. Patient Education: Education of diagnosis, Body/Joint mechanics, Home Exercise Program, Education of Plan of Care Patient demonstrates compliance with HEP?: Yes Short Term Goals Goal #1: pt independent with initial HEP Goal to be met by: 08/22/18 Progress towards Goal:: Progressing Goal #2: pt with improved Lumbar ROM WFL's with decreased pain Goal to be met by: 08/22/18 Progress towards Goal:: Progressing Goal #3: Improve hamstring/piriformis flexibilty Goal to be met by: 08/22/18 Progress towards Goal:: Progressing Goal #4: Improve BLe strength 4 to 4+/5 Goal to be met by: 08/22/18 Progress towards Goal:: Progressing Penitentiary Goals Goal #1: pt rate pain <4/10 Goal to be met by: 09/06/18 Goal #2: pt report ability to stand to complete household tasks w less pain Goal to be met by: 09/06/18 Goal #3: pt rate oswestry scale < 20 Goal to be met by: 09/06/18 Plan Dates of Manager Fine Goals: 09/06/18 Expiration date of current Insurance Approval:: 09/06/18 PLAN: Continue TIW
--- NOTE | 2018-08-26 16:06 | RS.OPPTDN ---
Subjective Date of Note: 08/26/18 Visit #: 8 Number of visits approved by Insurance: 12 Date of Evaluation: 08/08/18 Payer Source: Workman's Comp Treatment Diagnosis: L1 compression fx, low back pain, muscle weakness Current Subjective/complaints:: Patient says she returns to her MD Sunday, . She says her upper back is not hurting today. C/o of mid to lower back pain. She says treatment has helped her pain, but is slow. 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 She says she is thinking about starting at the gym close to her home so that she can work on stationary bike and maybe some light activities to help her get stronger and improve her back to work. *Precautions: pt with history of bladder CA - Treatment Modality: Electrical Stim Unattended Parameters/Method Applied: hivolt 4 large pads to the mid thoracic to upper lumbar paraspinals @ 155-160 pk volts x 20 mins Patient Position: Sitting - Heat/Cryotherapy Treatment: Hot Pack Interventions - Exercise/Activities/Manual Therapy Exercises/Activities: Patient continues to receive passive SKTC, HS, Piriformis , and figure 4. All bilaterally x 3 reps ea. Lower trunk rotation x 3. She performs ball squeezes for isometric hip add, isometric hip abd, hooklying green tband for bilateral hip abd, isometric hip flexion and QS bilaterally x 10. Bridging 2 x 10. Alternate LE raise in hooklying 1 1/2# ea. Began stationary bike x 5 mins today. Reviewed postural education and performed shoulder shrugs, scap adduction. Total minutes of Exercise: 17 Manual Therapy: n/a HOME EXERCISE PROGRAM: pt given written HEP including: pelvic tilt, isometric hip add, resisted hip abd, hamstring stretch - Charges Timed Code Treatment Minutes: 17 Total Treatment Time: 37 Procedures billed for this date of service:: hp, estim (un), ex Assessment: Patient presenting with less upper back pain and only mild mid to lower back pain today. She is able to progress with therex fairly well with beginning stationary bike and continuing postural strengthening at home. She demo increased flexibility bilaterally especially with hamstrings. L hip ER still somewhat tight. Patient Education: Body/Joint mechanics, Home Exercise Program Patient demonstrates compliance with HEP?: Yes Short Term Goals Goal #1: pt independent with initial HEP Goal to be met by: 08/22/18 Progress towards Goal:: Progressing Goal #2: pt with improved Lumbar ROM WFL's with decreased pain Goal to be met by: 08/22/18 Progress towards Goal:: Progressing Goal #3: Improve hamstring/piriformis flexibilty Goal to be met by: 08/22/18 Progress towards Goal:: Progressing Goal #4: Improve BLe strength 4 to 4+/5 Goal to be met by: 08/22/18 Progress towards Goal:: Progressing Ict Programmer Goals Goal #1: pt rate pain <4/10 Goal to be met by: 09/06/18 Goal #2: pt report ability to stand to complete household tasks w less pain Goal to be met by: 09/06/18 Goal #3: pt rate oswestry scale < 20 Goal to be met by: 09/06/18 Plan Dates of Half-Way Goals: 09/06/18 Expiration date of current Insurance Approval:: 09/06/18 PLAN: Continue BIW and attend MD appt Sunday.
--- NOTE | 2018-08-29 15:09 | RS.OPPTDN ---
Subjective Date of Note: 08/29/18 Visit #: 9 Number of visits approved by Insurance: 12 Date of Evaluation: 08/08/18 Payer Source: Workman's Comp Treatment Diagnosis: L1 compression fx, low back pain, muscle weakness Current Subjective/complaints:: Patient says she had a follow up yesterday with her MD. 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 States that her lower back is hurting more today because of increased driving to appt yesterday and the rainy weather. *Precautions: pt with history of bladder CA - Treatment Modality: Electrical Stim Unattended Parameters/Method Applied: 4 large electrodes to the lumbar paraspinals hivolt @ 145-155 pk volts x 20mins Patient Position: Sitting - Heat/Cryotherapy Treatment: Hot Pack Interventions - Exercise/Activities/Manual Therapy Exercises/Activities: Patient continues to receive progressive stretching of: SKTC, HS, Piriformis, and figure 4. All bilaterally x 3 reps ea. Lower trunk rotation x 3. She performs ball squeezes for isometric hip add, isometric hip abd, hooklying green tband for bilateral hip abd,SLR, bridging all 2x10 reps. Patient requested not to work on stationary bike today because of increase in pain. Total minutes of Exercise: 17 Manual Therapy: n/a HOME EXERCISE PROGRAM: pt given written HEP including: pelvic tilt, isometric hip add, resisted hip abd, hamstring stretch - Charges Timed Code Treatment Minutes: 17 Total Treatment Time: 37 Procedures billed for this date of service:: hp, estim (un), ex Assessment: Patient presenting with increased back pain and aggravation from more driving (~[address]). She verbalizes another order for 4 weeks. Will send for approval through w/c. Her MD is not releasing her to return to work at this point. Patient Education: Body/Joint mechanics, Home Exercise Program, Education of Plan of Care Patient demonstrates compliance with HEP?: Yes Short Term Goals Goal #1: pt independent with initial HEP Goal to be met by: 08/22/18 Progress towards Goal:: Progressing Goal #2: pt with improved Lumbar ROM WFL's with decreased pain Goal to be met by: 08/22/18 Progress towards Goal:: Progressing Goal #3: Improve hamstring/piriformis flexibilty Goal to be met by: 08/22/18 Progress towards Goal:: Progressing Goal #4: Improve BLe strength 4 to 4+/5 Goal to be met by: 08/22/18 Progress towards Goal:: Progressing Biochemical Development Engineer Goals Goal #1: pt rate pain <4/10 Goal to be met by: 09/06/18 Goal #2: pt report ability to stand to complete household tasks w less pain Goal to be met by: 09/06/18 Goal #3: pt rate oswestry scale < 20 Goal to be met by: 09/06/18 Plan Dates of Biochemical Development Engineer Goals: 09/06/18 Expiration date of current Insurance Approval:: 09/06/18 PLAN: Continue 2-3 x week. Possible new orders to be approved.
--- NOTE | 2018-09-02 14:54 | RS.CXNS ---
Date of scheduled appointment: 09/02/18 Type: Cancel Reason for Cancel/NS: Patient has car trouble
== END 2018-09-03 23:59 ==
PROVIDERS: ATTEND Specialist
DX: S32.010D Wedge compression fracture of first lumbar vertebra, subsequent encounter for fracture with routine healing (principal); M54.5 Low back pain; G89.29 Other chronic pain; M62.89 Other specified disorders of muscle; M62.81 Muscle weakness (generalized)

== ENCOUNTER 2018-09-27 14:00 | Outpatient (RCR) ==
--- NOTE | 2018-09-04 15:37 | RS.OPPTDN ---
Subjective Date of Note: 09/04/18 Visit #: 10 Number of visits approved by Insurance: 12 Date of Evaluation: 08/08/18 Payer Source: [employer] Treatment Diagnosis: L1 compression fx, low back pain, muscle weakness Current Subjective/complaints:: Patient says she has continued soreness across her low back, but does admit treatment has been helping her. She says she feels less tightness throughout her back. *Precautions: pt with history of bladder CA - Treatment Modality: Electrical Stim Unattended Parameters/Method Applied: Hivolt @ 175-220 pk volts x 20 mins to the lumbar paraspinals horizontally placed 4 large pads Patient Position: Sitting - Heat/Cryotherapy Treatment: Hot Pack Interventions - Exercise/Activities/Manual Therapy Exercises/Activities: Patient continues to receive progressive stretching of: SKTC, HS, Piriformis, and figure 4. All bilaterally x 3 reps ea. Lower trunk rotation x 3. Lower rotation trunk glides x 5. She performs ball squeezes for isometric hip add, isometric hip abd, hooklying increased to blue tband for bilateral hip abd,SLR, bridging all 2x10 reps. Sitting EOB: 3# wand for bilateral shoulder elevation to 90 degrees, blue tband for scap retraction with cues to engage abs and maintain proper posture. Patient completed Oswestry LBP Scale. Total minutes of Exercise: 20 Manual Therapy: n/a HOME EXERCISE PROGRAM: pt given written HEP including: pelvic tilt, isometric hip add, resisted hip abd, hamstring stretch - Charges Timed Code Treatment Minutes: 20 Total Treatment Time: 42 Procedures billed for this date of service:: hp, estim (un), ex Assessment: Patient demo 3 areas of improvement per Oswestry regarding lifting ability, walking, and sitting tolerance revealing a score of 22 or 44% impairment. Patient Education: Education of diagnosis, Home Exercise Program, Education of Plan of Care Patient demonstrates compliance with HEP?: Yes Short Term Goals Goal #1: pt independent with initial HEP Goal to be met by: 08/22/18 Progress towards Goal:: Progressing Goal #2: pt with improved Lumbar ROM WFL's with decreased pain Goal to be met by: 08/22/18 Progress towards Goal:: Progressing Goal #3: Improve hamstring/piriformis flexibilty Goal to be met by: 08/22/18 Progress towards Goal:: Progressing Goal #4: Improve BLe strength 4 to 4+/5 Goal to be met by: 08/22/18 Progress towards Goal:: Progressing Mcc Goals Goal #1: pt rate pain <4/10 Goal to be met by: 09/06/18 Progress towards goal: Progressing Goal #2: pt report ability to stand to complete household tasks w less pain Goal to be met by: 09/06/18 Progress towards goal: Progressing Goal #3: pt rate oswestry scale < 20 Goal to be met by: 09/06/18 Progress towards goal: Progressing Comments: Christianneo 22 today Plan Dates of Mcc Goals: 09/06/18 Expiration date of current Insurance Approval:: 09/06/18 PLAN: Will discuss this progress with PT in order to continue therapy with new order x 4 weeks in order to extend LTG
--- NOTE | 2018-09-06 16:21 | RS.OPPTDN ---
Subjective Date of Note: 09/06/18 Visit #: 11 Number of visits approved by Insurance: 12 Date of Evaluation: 08/08/18 Payer Source: Workman's Comp Treatment Diagnosis: L1 compression fx, low back pain, muscle weakness Current Subjective/complaints:: Patient says she is hurting in her upper back and R shoulder pain. She asks to not perform "arm exercises." *Precautions: pt with history of bladder CA - Treatment Modality: Electrical Stim Unattended Parameters/Method Applied: controlled horizontally 4 large pads hivolt bilateral lumbar paraspinals and superior gluts x 20 mins @ 275 and 300 pk volts. Patient Position: Sitting - Heat/Cryotherapy Treatment: Hot Pack Interventions - Exercise/Activities/Manual Therapy Exercises/Activities: Patient continues to receive progressive stretching of: SKTC, HS, Piriformis, and figure 4. All bilaterally x 3 reps ea. Lower trunk rotation x 3. Lower rotation trunk glides x 5. She performs isometric hip add/ abd/flexion in hooklying x 10 reps. Avoided other UE due to patient's request and increased pain in R shoulder. Total minutes of Exercise: 16 Manual Therapy: n/a HOME EXERCISE PROGRAM: pt given written HEP including: pelvic tilt, isometric hip add, resisted hip abd, hamstring stretch - Charges Timed Code Treatment Minutes: 16 Total Treatment Time: 36 Procedures billed for this date of service:: hp, estim (un), ex Assessment: Patient presents with increased R shoulder pain and requests no exercise for that area. She admit pain to the low back, but unable to rate it. We have not received approval to continue on with more therapy with order so, we have let Stephany know we will contact her if it is approved or she may call us to check in. She was encouraged to perform HEP and adhere to proper body and postural mechanics. Patient Education: Education of diagnosis, Body/Joint mechanics, Home Exercise Program, Education of Plan of Care Patient demonstrates compliance with HEP?: Yes Short Term Goals Goal #1: pt independent with initial HEP Goal to be met by: 08/22/18 Progress towards Goal:: Met Goal #2: pt with improved Lumbar ROM WFL's with decreased pain Goal to be met by: 08/22/18 Progress towards Goal:: Progressing Goal #3: Improve hamstring/piriformis flexibilty Goal to be met by: 08/22/18 Progress towards Goal:: Progressing Comments:: Patient has demo improvement and increased latisha, but does remain tight Goal #4: Improve BLe strength 4 to 4+/5 Goal to be met by: 08/22/18 Progress towards Goal:: Met Shelter Goals Goal #1: pt rate pain <4/10 Goal to be met by: 09/06/18 Progress towards goal: Progressing Goal #2: pt report ability to stand to complete household tasks w less pain Goal to be met by: 09/06/18 Progress towards goal: Progressing Goal #3: pt rate oswestry scale < 20 Goal to be met by: 09/06/18 Progress towards goal: Progressing Comments: 22 Plan Dates of Pediatric Licensed Practical Nurse Goals: 09/06/18 Expiration date of current Insurance Approval:: 09/06/18 PLAN: Awaiting approval from work comp to continue with new order
--- NOTE | 2018-09-25 09:34 | RS.PTSUM ---
Progress Note/Summary Date of Note: 09/25/18 Date of Evaluation: 08/08/18 G Codes: NA Source of G Code Score: NA - Short Term Goals Goal #1: pt independent with initial HEP Goal to be met by: 08/22/18 Progress towards Goal:: Met Goal #2: pt with improved Lumbar ROM WFL's with decreased pain Goal to be met by: 09/30/18 Progress towards Goal:: Progressing Goal #3: Improve hamstring/piriformis flexibilty Goal to be met by: 09/30/18 Progress towards Goal:: Progressing Goal #4: Improve BLe strength 4 to 4+/5 Goal to be met by: 08/22/18 Progress towards Goal:: Met - Group Home Goals Goal #1: pt rate pain <4/10 Goal to be met by: 10/02/18 Progress towards goal: Progressing Goal #2: pt report ability to stand to complete household tasks w less pain Goal to be met by: 10/02/18 Progress towards goal: Progressing Goal #3: pt rate oswestry scale < 20 Goal to be met by: 10/02/18 Progress towards goal: Progressing - Assessment Assessment of Improvement/Progress: Interruption in treatment was due to awaiting approval from [facility] for new order to continue treatment through the end of September. Patient returns to her physician on 10/02/18. Summary: Patient has made progress towards goals., Patient demonstrates potential to gain increased function with therapy - Plan Plan: Complete remaining visits on current order. Dates of Bundler Goals: 10/02/18 Expiration date of current Insurance Approval:: 10/02/18
--- NOTE | 2018-09-25 11:29 | RS.OPPTDN ---
Subjective Date of Note: 09/25/18 Visit #: 12 Number of visits approved by Insurance: 2 visits per work comp. Returning to MD 10/02/18. Date of Evaluation: 08/08/18 Payer Source: Workman's Comp Treatment Diagnosis: L1 compression fx, low back pain, muscle weakness Current Subjective/complaints:: Patient says she feels she is "back at the beginning" referring to her pain level. She says that her low back hurts currently and says her legs are tight. She says she returns to the MD 10/02/18. Reports she has moved to [place], which is a longer drive now to therapy and her MD and causes her more pain with the prolonged drive. *Precautions: pt with history of bladder CA - Treatment Modality: Electrical Stim Unattended Parameters/Method Applied: hivolt 4 large electrodes @ 285-345 pk volts x 20 mins to lumbar paraspinals Patient Position: Sitting - Heat/Cryotherapy Treatment: Hot Pack Comments:: mid to low back with estim Interventions - Exercise/Activities/Manual Therapy Exercises/Activities: Patient resumes progressive stretching of: SKTC, HS, Piriformis, and figure 4. All bilaterally x 3 reps ea. Lower trunk rotation x 3. Lower rotation trunk glides x 5. She performs isometric hip add/abd/ flexion in hooklying x 10 reps. SLR 2x5. Standing against the wall with 1# wand for bilateral shoulder elevation and green tband wand scap retraction x 10. Provided more handouts of HEP and instructed in all. Total minutes of Exercise: 22 Manual Therapy: n/a HOME EXERCISE PROGRAM: pt given written HEP including: pelvic tilt, isometric hip add, resisted hip abd, hamstring stretch - Charges Timed Code Treatment Minutes: 22 Total Treatment Time: 42 Procedures billed for this date of service:: hp, estim (un), ex Assessment: Patient resumes therapy as work comp has approved 2 visits leading to her MD appt next Sunday. She demo moderate mm guarding to the lower thoracic and lumbar region. She demo tightness to bilateral HS, but more so to the L LE. All isometrics latisha well. Difficulty demo with postural exercises and maintaining proper posture against the wall. MMT for bilateral LEs demo 4/ 5. Patient Education: Education of diagnosis, Body/Joint mechanics, Home Exercise Program, Education of Plan of Care Patient demonstrates compliance with HEP?: Yes (inconsistently at times) Short Term Goals Goal #1: pt independent with initial HEP Goal to be met by: 08/22/18 Progress towards Goal:: Met Goal #2: pt with improved Lumbar ROM WFL's with decreased pain Goal to be met by: 08/22/18 Progress towards Goal:: Progressing Goal #3: Improve hamstring/piriformis flexibilty Goal to be met by: 08/22/18 Progress towards Goal:: Progressing Goal #4: Improve BLe strength 4 to 4+/5 Goal to be met by: 08/22/18 Progress towards Goal:: Met Residential Goals Goal #1: pt rate pain <4/10 Goal to be met by: 09/06/18 Progress towards goal: Progressing Goal #2: pt report ability to stand to complete household tasks w less pain Goal to be met by: 09/06/18 Progress towards goal: Progressing Goal #3: pt rate oswestry scale < 20 Goal to be met by: 09/06/18 Progress towards goal: Progressing Plan Dates of Residential Goals: 10/02/18 Expiration date of current Insurance Approval:: 10/02/18 PLAN: continue x 1 more session per approval and leading up to her MD appt.
--- NOTE | 2018-09-27 16:33 | RS.OPPTDN ---
Subjective Date of Note: 09/27/18 Visit #: 13 Number of visits approved by Insurance: 13 Date of Evaluation: 08/08/18 Payer Source: Workman's Comp Treatment Diagnosis: L1 compression fx, low back pain, muscle weakness Current Subjective/complaints:: Patient says she feels she went backwards when she did not have therapy for a few weeks. She says she still has the same amount of pain (6/10) to the lower back. Denies pain or tingling/numbness to the LEs. *Precautions: pt with history of bladder CA - Treatment Modality: Electrical Stim Unattended Parameters/Method Applied: Hivolt 4 large pads uncrossed horizontally placed @ 195-215 pk volts x 20 mins Treatment Area: lumbar paraspinals Patient Position: Sitting - Heat/Cryotherapy Treatment: Hot Pack Interventions - Exercise/Activities/Manual Therapy Exercises/Activities: Patient resumes progressive stretching of: SKTC, HS, Piriformis, and figure 4. All bilaterally x 3 reps ea. Lower trunk rotation x 3. Lower rotation trunk glides x 5. She performs ball squeezes, isometric hip flexion, blue tband for bilateral hip abd in hooklying 2x12. SAQ 2 1/2#, bridging 2x10 reps. Provided blue tband for home progression with scap retraction and to use for hooklying hip abd then advance to rene tband. Total minutes of Exercise: 22 Manual Therapy: n/a HOME EXERCISE PROGRAM: pt given written HEP including: pelvic tilt, isometric hip add, resisted hip abd, hamstring stretch - Charges Timed Code Treatment Minutes: 22 Total Treatment Time: 42 Procedures billed for this date of service:: hp, estim (un), ex Assessment: Patient primarily having temporary relief of pain through modalities. Decreased mm guarding to only slight into the bilateral lumbar parapinals. She knows HEP and is able to perform independently. She maintains forward flexed posture with ambulation. Avg pain level 6/10 to the lumbar only , no radicular symptoms noted. HS flexibility is WFL. Patient Education: Education of diagnosis, Body/Joint mechanics, Home Exercise Program, Education of Plan of Care Patient demonstrates compliance with HEP?: Yes Short Term Goals Goal #1: pt independent with initial HEP Goal to be met by: 08/22/18 Progress towards Goal:: Met Goal #2: pt with improved Lumbar ROM WFL's with decreased pain Goal to be met by: 08/22/18 Progress towards Goal:: Met Goal #3: Improve hamstring/piriformis flexibilty Goal to be met by: 08/22/18 Progress towards Goal:: Met Goal #4: Improve BLe strength 4 to 4+/5 Goal to be met by: 08/22/18 Progress towards Goal:: Met Guide Setter Goals Goal #1: pt rate pain <4/10 Goal to be met by: 09/06/18 Progress towards goal: Progressing Comments: 6/10 avg Goal #2: pt report ability to stand to complete household tasks w less pain Goal to be met by: 09/06/18 Progress towards goal: Progressing Comments: better, but still has difficulty with prolonged standing Goal #3: pt rate oswestry scale < 20 Goal to be met by: 09/06/18 Progress towards goal: Progressing Comments: 22 Plan Dates of Guide Setter Goals: 10/02/18 Expiration date of current Insurance Approval:: 10/02/18 PLAN: Patient to return to MD Sunday. She has completed allowed visits.
== END 2018-10-04 23:59 | disposition short-term general hospital (02) ==
PROVIDERS: ATTEND Specialist
DX: S32.010D Wedge compression fracture of first lumbar vertebra, subsequent encounter for fracture with routine healing (principal)